=== PATIENT | female | born 1980 ===

== ENCOUNTER 2020-03-27 | Outpatient (REF) | payer OTHER, SELFPAY ==
[2020-04-02 21:37] LABS: HPV mRNA E6/E7 Not Detected (Not Detected)
== END 2020-03-28 15:08 | disposition home or self-care (01) ==
LOC: HO.LAB
PROVIDERS: Visit Provider Advanced Practice Midwife
DX: Z01.419 Encounter for gynecological examination (general) (routine) without abnormal findings (principal); Z11.3 Encounter for screening for infections with a predominantly sexual mode of transmission
CPT/HCPCS: 87624; 87625; 88142

== ENCOUNTER → 2020-03-27 09:06 | Outpatient (BNVA) | payer OTHER, SELFPAY | PROVIDERS: PCP Internal Medicine; Referring Provider Internal Medicine; Visit Provider Advanced Practice Midwife | DX: Z76.89 Persons encountering health services in other specified circumstances (principal) ==

== ENCOUNTER 2020-04-01 11:01 | Outpatient (REF) | payer OTHER, SELFPAY ==
--- NOTE | 2020-04-01 11:09 | MM_ITS ---
EXAMINATION: MM DIAGNOSTIC DIGITAL BREAST TOMOSYNTHESIS, BILATERAL US DIAGNOSTIC ULTRASOUND BREAST, BILATERAL CLINICAL INFORMATION: Bilateral masses palpable at routine annual clinical exam. Family history breast cancer in mother, age early 50s. Due for yearly. The lifetime risk of breast cancer based on the Tyrer-Cuzick Model is 15%. COMPARISON: Mammography: 12/12/2018, 12/04/2018, 11/21/2017; targeted right breast ultrasound 12/12/2018. TECHNIQUE: Digital breast tomosynthesis is performed in both the craniocaudal and mediolateral oblique views along with computer-aided detection (CAD). Synthesized 2D images are generated from the tomosynthesis. Ultrasound left breast is targeted to the areas of clinical concern upper and outer quadrants. Ultrasound right breast is targeted to the areas of clinical concern imaging concern 3:00 through 8:00 position. Grayscale imaging and color Doppler are performed on each side without and with harmonics. FINDINGS: The breasts are extremely dense, which lowers the sensitivity of mammography (ACR BI-RADS breast composition Category d). There is new mass posterior 3:00 left breast with smooth and partly obscured margins measuring around 1.5 cm. There is a new mass right breast posterior 3:00 position with smooth and partly obscured margins, or approximately 1.9 cm. There is an old cyst again seen upper right breast on MLO view, slightly increased in size, currently measuring 1.5 cm. Neither breast shows architectural abnormality. There are no abnormal calcifications. The axilla and skin contours are unremarkable. Ultrasound left breast demonstrates simple cyst posterior 3:00 position corresponding to the mass on mammography and measuring 1.3 x 1.6 x 2.0 cm. There is a satellite cyst near this area with fine internal avascular septation and overall size 1.0 x 1.1 cm. There is no solid mass or architectural abnormality. Ultrasound right breast demonstrates multiple simple cysts. The mass posterior to o'clock-3:00 position measures 2.3 x 0.9 x 3.1 cm. The next largest cyst is upper outer breast 10:00 position measuring approximately 1.5 x 1.8 cm. There is an adjacent satellite cyst with fine incomplete thin internal septation and overall size 1.2 x 1.5 cm. There is no solid mass or architectural abnormality. Results are discussed with the patient at time of visit. IMPRESSION: Bilateral fibrocystic changes. No significant change from prior studies. No solid mass or architectural abnormality. ASSESSMENT: BI-RADS 2: Benign RECOMMENDATION: Routine annual mammography screening. This patient's information was entered into a reminder system with a target due date for their next mammogram.
== END 2020-04-01 11:02 | disposition home or self-care (01) ==
LOC: HO.MAMMO 11:01
PROVIDERS: PCP Internal Medicine; Visit Provider Advanced Practice Midwife
DX: N63.11 Unspecified lump in the right breast, upper outer quadrant (principal); N63.12 Unspecified lump in the right breast, upper inner quadrant; N63.21 Unspecified lump in the left breast, upper outer quadrant; Z80.3 Family history of malignant neoplasm of breast
CPT/HCPCS: 76642; 77062; 77066

== ENCOUNTER 2021-04-06 10:18 | Outpatient (REF) | payer OTHER, SELFPAY ==
--- NOTE | ~2021-04-06 | MM_ITS ---
EXAMINATION: MM SCREENING DIGITAL BREAST TOMOSYNTHESIS, BILATERAL CLINICAL INFORMATION: Screening. Asymptomatic. Family history breast cancer, mother. The lifetime risk of breast cancer based on the Tyrer-Cuzick Model is 16%. COMPARISON: Mammography: 04/01/2020, 12/12/2018, 12/04/2018, 11/21/2017; bilateral targeted ultrasound 04/01/2020, 12/12/2018. TECHNIQUE: Digital breast tomosynthesis is performed in both the craniocaudal and mediolateral oblique views along with computer-aided detection (CAD). Synthesized 2D images are generated from the tomosynthesis. FINDINGS: The breasts are extremely dense, which lowers the sensitivity of mammography (ACR BI-RADS breast composition Category d). There is fibrocystic parenchymal pattern similar to prior studies. A dominant cyst again seen posterior medial right breast. There is no significant mass or architectural abnormality. No interval abnormal calcifications. The axilla and skin contours are unremarkable. No significant changes from prior studies. MM/MM tomosynthesis screening BI IMPRESSION: No mammographic evidence of malignancy. ASSESSMENT: BI-RADS 2: Benign RECOMMENDATION: Routine annual mammography screening. This patient's information was entered into a reminder system with a target due date for their next mammogram.
== END 2021-04-06 10:19 | disposition home or self-care (01) ==
LOC: HO.MAMMO 10:18
PROVIDERS: Visit Provider Internal Medicine
DX: Z12.31 Encounter for screening mammogram for malignant neoplasm of breast (principal)
CPT/HCPCS: 77063; 77067

== ENCOUNTER 2021-05-15 09:18 | Outpatient (REF) | payer OTHER, SELFPAY | END 2021-05-15 09:19 | disposition home or self-care (01) | LOC: HO.LAB 09:18 | PROVIDERS: Visit Provider Internal Medicine | DX: Z20.822 Contact with and (suspected) exposure to COVID-19 (principal) | CPT/HCPCS: C9803; U0003; U0005 ==

== ENCOUNTER 2021-06-02 11:02 | Outpatient (REF) | payer OTHER, SELFPAY | END 2021-06-02 11:03 | disposition home or self-care (01) | LOC: HO.LAB 11:02 | PROVIDERS: Visit Provider Internal Medicine | DX: Z13.89 Encounter for screening for other disorder (principal) | CPT/HCPCS: C9803; U0003; U0005 ==

== ENCOUNTER 2021-06-04 09:18 | Outpatient (REF) | payer OTHER, SELFPAY ==
[2021-06-04 11:11] LABS: COVID-19 Test Negative (Negative); IDNOW Serial# 16C4AD1C
== END 2021-06-04 09:19 | disposition home or self-care (01) ==
LOC: HO.LAB 09:18
PROVIDERS: Visit Provider Internal Medicine
DX: Z20.822 Contact with and (suspected) exposure to COVID-19 (principal)
CPT/HCPCS: 36415; 87635; C9803

== ENCOUNTER 2021-06-23 09:42 | Outpatient (REF) | payer OTHER, SELFPAY ==
--- NOTE | ~2021-06-23 | XR_ITS ---
EXAMINATION: XR CHEST CLINICAL INFORMATION: Chest pain. COMPARISON: None TECHNIQUE: 2 views of the chest were obtained. FINDINGS: No significant abnormality is noted involving the heart, lungs, mediastinum, bony thorax or soft tissues. XR/XR chest 2V IMPRESSION: No acute cardiopulmonary process.
[2021-06-23 10:09] LABS: MANUAL DIFF FLAG NO
--- NOTE | 2021-06-23 10:10 | ECG_ITS ---
Test Reason : cp Blood Pressure : / mmHG Vent. Rate : 077 BPM Atrial Rate : 077 BPM P-R Int : 154 ms QRS Dur : 074 ms QT Int : 384 ms P-R-T Axes : 055 072 051 degrees QTc Int : 434 ms Normal sinus rhythm Normal ECG No previous ECGs available Referred By: Sheree Gill Electronically Signed By:SHERLY RAND
[2021-06-23 10:29] LABS: Basophils Percent Auto 0.3 % (0-2); Eosinophils Absolute Auto 0.1 X10*3/uL (0.0-0.4); Eosinophils Percent Auto 1.7 % (0-4); Hematocrit 33.5 % (37.0-47.0); Lymphocytes Absolute Auto 0.4 X10*3/uL (1.2-4.9); Lymphocytes Percent Auto 10.2 % (20-40); Mean Corpuscular HGB Conc 32.8 g/dl (31.0-35.0); Mean Corpuscular Hemoglobin 27.3 pg (27.0-33.0); Mean Corpuscular Volume 83.1 fL (80.0-98.0); Mean Platelet Volume 10.3 fL (9.4-12.3); Monocytes Absolute Auto 0.2 X10*3/uL (0.1-1.2); Monocytes Percent Auto 5.8 % (2-11); Platelet Count 163 X10*3/uL (160-400); Red Blood Count 4.03 X10*6/uL (4.20-5.50); Red Cell Distribution Width 12.5 % (11.0-16.0); White Blood Count 3.6 X10*3/uL (4.8-10.8)
[2021-06-23 10:50] LABS: Alanine Aminotransferase 13 U/L (0-31); Albumin Level 4.4 g/dL (3.5-5.0); Alkaline Phosphatase 66 U/L (39-117); Anion Gap 10 (12-20); Aspartate Amino Transferase 16 U/L (5-31); Bilirubin Direct 0.2 mg/dL (0.0-0.5); Bilirubin Total 0.5 mg/dL (0.0-1.0); Blood Urea Nitrogen 9 mg/dL (9-16); Calcium 9.1 mg/dL (8.4-10.2); Carbon Dioxide 23 mmol/L (22-29); Chloride 109 mmol/L (96-108); Cholesterol 196 mg/dL; Estimated Glomerular Filt Rate > 60; Glucose Fasting 98 mg/dL (60-99); HDL Cholesterol 48 mg/dL; LDL Cholesterol Calculated 126 mg/dl; Sodium 138 mmol/L (135-145); Total Protein 7.7 g/dL (6.5-8.0); Triglycerides 112 mg/dL
[2021-06-23 10:52] LABS: Troponin-I High Sensitivity < 3.5 ng/L (<3.5-17.0)
[2021-06-23 11:14] LABS: TSH reflex Free T4 0.62 uIU/mL (0.32-4.0); Vitamin D 25-OH Total 19.3 ng/mL (>30)
[2021-06-23 11:43] LABS: Folate 10.8 ng/mL (> or = 4.0); Vitamin B12 224 pg/mL (200-900)
[2021-06-28 12:56] LABS: Vitamin D 25-OH, D2 <4 ng/mL; Vitamin D 25-OH, D3 20 ng/mL; Vitamin D 25-OH, Total 20 ng/mL (30-100)
== END 2021-06-23 09:43 | disposition home or self-care (01) ==
LOC: HO.LAB 09:42
PROVIDERS: PCP Internal Medicine; Visit Provider Nurse Practitioner Family
DX: R07.9 Chest pain, unspecified (principal); E55.9 Vitamin D deficiency, unspecified; D64.9 Anemia, unspecified; E78.5 Hyperlipidemia, unspecified; Z84.1 Family history of disorders of kidney and ureter
CPT/HCPCS: 36415; 71046; 80053; 80061; 80076; 82248; 82306; 82607; 82746; 84443; 84484; 85025; 93005

== ENCOUNTER → 2021-07-20 08:28 | Outpatient (REF) | payer OTHER, SELFPAY ==
--- NOTE | 2021-07-20 08:31 | CA_ITS ---
Acquisition Time: 2021-07-20 09:33:00 Total Exercise Time: 00:07:14 Test Indications: CHEST PAIN Medications: NONE Protocol: ANNIKA Max HR: 155 BPM 87% of Pred: 177 BPM Max BP: 128/070 mmHG Max Work Load: 8.8 METS Exercise stress test with exercise 7 min 14 sec of Aninka protocol, without anginal symptoms, without arrythmia, with normotensive response to exercise, without EKG changes meeting criteria for ischemia. Test reviewed with Dr Bishop. Referred By: Sheree Gill Overread By: JOSEF GILBERT
== END ==
LOC: HO.CARD 08:28
PROVIDERS: Visit Provider Nurse Practitioner Family
DX: R07.9 Chest pain, unspecified (principal)
CPT/HCPCS: 93017

== ENCOUNTER 2021-10-21 08:14 | Outpatient (REF) | payer OTHER, SELFPAY ==
[2021-10-21 09:01] LABS: COVID-19 Test Negative (Negative)
== END 2021-10-21 08:15 | disposition home or self-care (01) ==
LOC: HO.LAB 08:14
PROVIDERS: Visit Provider Internal Medicine
DX: Z20.822 Contact with and (suspected) exposure to COVID-19 (principal)
CPT/HCPCS: 87635; C9803

== ENCOUNTER 2022-04-12 10:10 | Outpatient (REF) | payer OTHER, SELFPAY ==
--- NOTE | ~2022-04-12 | MM_ITS ---
EXAMINATION: MM SCREENING DIGITAL BREAST TOMOSYNTHESIS, BILATERAL CLINICAL INFORMATION: Screening. Asymptomatic. Family history breast cancer, mother. The lifetime risk of breast cancer based on the Tyrer-Cuzick Model is 16%. COMPARISON: Mammography: 04/06/2021, 04/01/2020, 12/12/2018, bilateral breast ultrasound 04/01/2020 TECHNIQUE: Digital breast tomosynthesis is performed in both the craniocaudal and mediolateral oblique views along with computer-aided detection (CAD). Synthesized 2D images are generated from the tomosynthesis. FINDINGS: The breasts are extremely dense, which lowers the sensitivity of mammography (ACR BI-RADS breast composition Category d). There is no interval mass or architectural abnormality or developing density. Parenchymal pattern is similar to prior studies. No abnormal calcifications. The axilla and skin contours are unremarkable. No significant changes. MM/MM tomosynthesis screening BI IMPRESSION: No mammographic evidence of malignancy. ASSESSMENT: BI-RADS 1: Negative RECOMMENDATION: Routine annual mammography screening. This patient's information was entered into a reminder system with a target due date for their next mammogram.
== END 2022-04-12 10:11 | disposition home or self-care (01) ==
LOC: HO.MAMMO 10:10
PROVIDERS: PCP Internal Medicine; Visit Provider Internal Medicine
DX: Z12.31 Encounter for screening mammogram for malignant neoplasm of breast (principal)
CPT/HCPCS: 77063; 77067

== ENCOUNTER 2022-08-16 12:08 | Outpatient (REF) | payer OTHER, SELFPAY ==
[2022-08-16 12:26] LABS: MANUAL DIFF FLAG NO
[2022-08-16 12:45] LABS: Basophils Percent Auto 0.3 % (0-2); Eosinophils Absolute Auto 0.1 X10*3/uL (0.0-0.4); Hematocrit 32.1 % (37.0-47.0); Hemoglobin 10.4 g/dl (12.0-16.0); Imm Gran Abs Auto 0.01 X10*3/uL (0.00-0.03); Imm Gran Pct Auto 0.3 % (0.0-0.4); Lymphocytes Absolute Auto 0.9 X10*3/uL (1.2-4.9); Lymphocytes Percent Auto 26.6 % (20-40); Mean Corpuscular HGB Conc 32.4 g/dl (31.0-35.0); Mean Corpuscular Hemoglobin 26.5 pg (27.0-33.0); Mean Corpuscular Volume 81.9 fL (80.0-98.0); Mean Platelet Volume 10.8 fL (9.4-12.3); Monocytes Absolute Auto 0.2 X10*3/uL (0.1-1.2); Monocytes Percent Auto 6.9 % (2-11); Neutrophils Absolute Auto 2.1 x10*3/uL (2.0-8.3); Neutrophils Percent Auto 62.9 % (45-73); Platelet Count 169 X10*3/uL (160-400); Red Blood Count 3.92 X10*6/uL (4.20-5.50); Red Cell Distribution Width 13.1 % (11.0-16.0); White Blood Count 3.4 X10*3/uL (4.8-10.8)
[2022-08-16 13:29] LABS: Alanine Aminotransferase 11 U/L (0-31); Albumin Level 4.5 g/dL (3.5-5.0); Alkaline Phosphatase 59 U/L (39-117); Anion Gap 12 (12-20); Aspartate Amino Transferase 21 U/L (5-31); Bilirubin Total 0.8 mg/dL (0.0-1.0); Blood Urea Nitrogen 16 mg/dL (9-16); Calcium 8.7 mg/dL (8.4-10.2); Carbon Dioxide 23 mmol/L (22-29); Chloride 109 mmol/L (96-108); Cholesterol 213 mg/dL; Estimated Glomerular Filt Rate > 60; Glucose Fasting 90 mg/dL (60-99); HDL Cholesterol 53 mg/dL; LDL Cholesterol Calculated 145 mg/dl; Potassium 4.1 mmol/L (3.3-5.1); Sodium 140 mmol/L (135-145); Total Protein 7.3 g/dL (6.5-8.0); Triglycerides 79 mg/dL
[2022-08-16 13:58] LABS: Folate 11.7 ng/mL (> or = 4.0); Vitamin B12 239 pg/mL (200-900); Vitamin D 25-OH Total 11.4 ng/mL (>30)
== END 2022-08-16 12:09 | disposition home or self-care (01) ==
LOC: HO.LAB 12:08
PROVIDERS: PCP Internal Medicine; Visit Provider Internal Medicine
DX: Z00.00 Encounter for general adult medical examination without abnormal findings (principal); D64.9 Anemia, unspecified; D70.9 Neutropenia, unspecified; E55.9 Vitamin D deficiency, unspecified
CPT/HCPCS: 36415; 80053; 80061; 82306; 82607; 82746; 85025

== ENCOUNTER → 2022-09-03 14:13 | Outpatient (BNV) | payer OTHER, SELFPAY | PROVIDERS: PCP Internal Medicine; Visit Provider Internal Medicine | DX: D50.9 Iron deficiency anemia, unspecified (principal); D72.819 Decreased white blood cell count, unspecified | CPT/HCPCS: 99204; 99213; 99214; G2211 ==

== ENCOUNTER 2023-04-15 10:14 | Outpatient (REF) | payer OTHER, SELFPAY ==
--- NOTE | ~2023-04-15 | MM_ITS ---
EXAMINATION: MM SCREENING DIGITAL BREAST TOMOSYNTHESIS, BILATERAL CLINICAL INFORMATION: Screening. Asymptomatic. COMPARISON: Mammography: This study is compared with prior exams dating back to 2019. TECHNIQUE: Digital breast tomosynthesis is performed in both the craniocaudal and mediolateral oblique views along with computer-aided detection (CAD). Synthesized 2D images are generated from the tomosynthesis. FINDINGS: The breasts are extremely dense, which lowers the sensitivity of mammography (ACR BI-RADS breast composition Category d). There are no significant masses, abnormal calcifications, or other abnormalities. MM/MM tomosynthesis screening BI IMPRESSION: No mammographic evidence of malignancy. ASSESSMENT: BI-RADS BI-RADS 1 - Negative RECOMMENDATION: Routine annual mammography screening. 1 year F/U This examination should not preclude the clinical evaluation of a suspicious palpable abnormality. This patient's information was entered into a reminder system with a target due date for their next mammogram.
== END 2023-04-15 10:15 | disposition home or self-care (01) ==
LOC: HO.MAMMO 10:14
PROVIDERS: PCP Internal Medicine; Visit Provider Internal Medicine
DX: Z12.31 Encounter for screening mammogram for malignant neoplasm of breast (principal)
CPT/HCPCS: 77063; 77067

== ENCOUNTER → 2023-04-15 10:15 | Outpatient (BNV) | payer OTHER, SELFPAY | PROVIDERS: PCP Internal Medicine; Visit Provider Radiology Diagnostic Radiology | DX: Z12.31 Encounter for screening mammogram for malignant neoplasm of breast (principal) | CPT/HCPCS: 77063; 77067 ==

== ENCOUNTER 2023-04-25 09:06 | Outpatient (AMB) | payer OTHER, SELFPAY ==
--- NOTE | 2023-04-25 09:07 | MHC.PC.OV ---
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 Accompanied by: Spouse Allergies No Known Allergies Allergy (Verified 04/25/23 09:26) Medication List - Last Reconciled 04/25/23 by Patsy Cooper MD cholecalciferol (vitamin D3) 50 mcg PO DAILY 90 days cyanocobalamin (vitamin B-12) (Vitamin B-12) 1,000 mcg PO DAILY ferrous sulfate 325 mg PO DAILY loratadine (Allergy Relief (loratadine)) 10 mg PO DAILY Tobacco use date assessed: 08/23/22 Dental Screening Dental Screen Date: 04/25/23 Did you have a dental visit in the last 12 months?: Yes Did you have a dental problem in the last 6 months where you did not have access to dental care?: No Was dental information given to patient?: Patient has dentist HPI HPI Comments History of Present Illness Details This is a 42-year-old female that comes accompanied by for her physical exam. Last mammogram was last week and results are still pending. Last Pap smear was 2019 and was normal with negative HPV. No chest pain or shortness of breath. [facility] Medical History Raynaud disease Skin lesion of scalp HSV-1 infection Seasonal allergies Surgical History Hx of tubal ligation History of 2 sections Family History Father Prostate cancer Kidney failure Mother Cervical cancer Breast cancer Maternal Grandmother Breast cancer Social History Housing: House Alcohol intake: current Alcohol intake frequency: holidays/special occasions only Patient Tobacco Use Status: Never used Tobacco e-Cigarette/Vaping Use: Never Used Second Hand Smoke Exposure: No service: No Current occupational status: employed Current occupational exposures/hazards: No Gender identity: Female Cognitive needs: No Hearing needs: No Vision needs: Yes Female Reproductive History Menstrual Age of Menarche: 11 Questionnaire Thrive Questionnaire Date Thrive assessed: 08/23/22 LUIS-7 AMB Questionnaire LUIS-7 Date LUIS - 7 assessed: 08/23/22 Source: Developed by Drs. Axel Larose, Skye Alonso, Anthony Nugent and colleagues, with an educational cesario from [email or web address]. Review of Systems Const All systems reviewed & are unremarkable except as noted in HPI and below Eyes Reports no additional complaints, Denies change in vision and Denies other visual disturbances Card Denies chest pain at rest, Denies chest pain with activity, Denies edema, Denies irregular heart rhythm, Denies claudication, Denies dyspnea, Denies dyspnea on exertion, Denies orthopnea, Denies paroxysmal nocturnal dyspnea and Denies slow heart rate Resp Denies cough, Denies dyspnea and Denies dyspnea on exertion GI Denies abdominal pain, Denies change in bowel habits, Denies excessive flatus, Denies nausea and Denies vomiting Denies urinary incontinence, Denies urinary hesitancy and Denies urinary urgency Musc Denies abnormal gait, Denies atrophy, Denies deformity and Denies limited range of motion Skin/Breast Denies bleeding lesions, Denies changing lesions and Denies rash Neuro Denies abnormal gait and Denies lack of coordination Physical exam (Primary Care) Vital Signs: Last Vital Signs Pulse 79 04/25/23 09:15 BP 110/76 04/25/23 09:15 Pulse Ox 99 04/25/23 09:15 Oxygen Delivery Method Room Air 04/25/23 09:15 BMI result Body Mass Index 22.1 Tobacco/Smoking Status: Tobacco use Status Tobacco use date assessed 08/23/22 04/25/23 09:08 Patient Tobacco Use Status Never used Tobacco 04/25/23 09:08 e-Cigarette/Vaping Use Never Used 04/25/23 09:08 Thrive Assessment: Date of Thrive Assessment Date Thrive assessed 08/23/22 04/25/23 09:08 Const Orientation/consciousness: patient oriented x3 HENMT Head: Yes normal to inspection, Yes normocephalic and Yes atraumatic Ears: external ears normal Eyes General: appearance normal, both eyes and all related structures Eyelids: Yes eyelids normal Conjunctivae: conjunctivae normal Neck Neck: Yes normal visual inspection and Yes supple Resp Effort & Inspection: normal respiratory effort Auscultation: clear to auscultation bilaterally Cardio Jugular venous distension: no JVD Rate: regular rate Rhythm: regular rhythm Heart sounds: S1 normal heart sound present and S2 normal heart sound present GI Inspection: Yes normal to inspection Palpation (GI): Soft to palpation and nontender Auscultation: normal bowel sounds Skin General skin exam: no rashes or lesions noted Neuro General: patient oriented x3 and no focal motor deficits Extrem General: Yes full ROM Psych Appearance: grossly normal Office Procedures Flu Questionnaire Does the patient have a severe egg allergy?: No Immunizations flu vacc [id number] 6mos up(PF) 60 mcg(15 mcgx4)/0.5 mL IM syringe Performing Provider: Patsy Cooper MD [facility] Documented (not given) by: JAMIN Marcial on 04/25/23 09:17 Reason Not Given: Patient Refused Assessment and Plan Assessment & Plan (1) Physical exam: Code(s): Z00.00 - Encounter for general adult medical examination without abnormal findings Plan: Repeat in a year. Orders: Orders Influenza [id number] Immunization Today Z23 - Encounter for immunization Vitamin D 25-OH Total Today E55.9 - Vitamin D deficiency, unspecified Lipid Panel Today Z00.00 - Encounter for general adult medical examination without abnormal findings Comprehensive [place]. Panel Fast Today Z00.00 - Encounter for general adult medical examination without abnormal findings Medications: New loratadine (Allergy Relief (loratadine)) 10 mg PO DAILY 90 days 90 tabs 0RF Changed From ferrous sulfate 325 mg PO BID 60 tabs 4RF To ferrous sulfate 325 mg PO DAILY Refilled cholecalciferol (vitamin D3) 50 mcg PO DAILY 90 days 90 caps 1RF Coding Level of Care Code Est Pt Prev Care 40-64y(56633) Diagnoses Physical exam Z00.00 Time Spent (min) 31
[2023-04-25 09:15] VITALS: BP 110/76; PULSE 79; O2SAT 99; BMI 22.1
== END 2023-04-25 09:45 | disposition home or self-care (01) ==
PROVIDERS: Visit Provider Internal Medicine
DX: Z00.00 Encounter for general adult medical examination without abnormal findings (principal); Z84.1 Family history of disorders of kidney and ureter
CPT/HCPCS: 99396

== ENCOUNTER 2023-05-09 08:31 | Outpatient (REF) | payer OTHER, SELFPAY | END 2023-05-09 08:32 | disposition home or self-care (01) | LOC: HO.LAB 08:31 | PROVIDERS: PCP Internal Medicine; Visit Provider Internal Medicine | DX: Z13.89 Encounter for screening for other disorder (principal) ==

== ENCOUNTER 2023-10-27 09:52 | Outpatient (AMB) | payer OTHER, SELFPAY ==
--- NOTE | 2023-10-27 09:53 | MHC.OFFVIS ---
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 Doing well with concerns: Regular monthly menses, HMB x2, w/spotting up 2 wks. Over the last 2 years. History of tubal ligation Currently is sexually active. She denies vaginal itching and irritation. She denies any pelvic pain, no postcoital bleeding, or urinary symptoms. Admits to not eating a healthy diet, and stays active with exercise at home. 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 Denies family history of ovarian or colon cancer. FH breast cancer-mom, dx. age 54. Last pap smear 2019, negative. Mammogram: 2022. [facility] Medical History Raynaud disease Skin lesion of scalp HSV-1 infection Seasonal allergies Surgical History Hx of tubal ligation History of 2 sections Family History Father Prostate cancer Kidney failure Mother Cervical cancer Breast cancer Maternal Grandmother Breast cancer Social History Housing: House Alcohol intake: current Alcohol intake frequency: holidays/special occasions only Patient Tobacco Use Status: Never used Tobacco e-Cigarette/Vaping Use: Never Used Second Hand Smoke Exposure: No service: No Current occupational status: employed Current occupational exposures/hazards: No Gender identity: Female Cognitive needs: No Hearing needs: No Vision needs: Yes Female Reproductive History Menstrual Age of Menarche: 11 Duration of menses: 6-7 days Date of last menstrual period: 10/17/23 control method: permanent sterilization Total pregnancies: 2 Full term: 2 Number of Living Children: 2 Date of last pap smear: 04/01/20 (negative) History of abnormal pap smear: No Date of Mammogram: 04/15/23 Review of Systems Const All systems reviewed & are unremarkable except as noted in HPI and below Reports as per HPI Eyes Reports no additional complaints ENT Reports no additional complaints Card Reports no additional complaints Resp Reports no additional complaints GI Reports as per HPI and Reports no additional complaints Reports as per HPI Musc Reports no additional complaints Skin/Breast Reports as per HPI Neuro Reports no additional complaints Psych Reports no additional complaints Endo Reports no additional complaints Johann/Lymph Reports no additional complaints Aller/Immun Reports no additional complaints Physical Exam Vital Signs: Last Vital Signs BP 92/64 10/27/23 09:55 BMI result Body Mass Index 22.3 Const General: cooperative, healthy appearing, no acute distress, well developed and alert Orientation/consciousness: patient oriented x3 HEENT Head: Yes normal to inspection Eyes General: appearance normal, both eyes and all related structures Neck Neck: Yes normal visual inspection Thyroid: Thyroid normal Chest Chest palpation & inspection: normal inspection of the chest and other (no puckering, dimpling, peau de orange, retraction, discharge, masses) Breast/axilla inspection: normal inspection of the breasts Breast/axilla palpation: normal palpation of the breasts Resp Effort & Inspection: normal respiratory effort GI Inspection: Yes normal to inspection Palpation (GI): Soft to palpation Rectal Exam - Female: deferred General: Yes bladder normal to palpation External Female Exam: normal external appearance and normal appearance of the urethra Speculum Exam - Vagina: normal appearance of the vagina, normal palpation, normal vaginal discharge and vaginal bleeding Speculum Exam - Cervix: normal appearance of the cervix and normal palpation Bimanual exam- vagina & uterus: normal bimanual exam, normal palpation, uterine size normal, bladder normal to palpation, normal palpation and non-tender Bimanual Exam- Adnexa, other: no masses OB/external & speculum: vaginal bleeding Skin General skin exam: no rashes or lesions noted Rashes: no rashes Neuro General: patient oriented x3 Cognition (Neuro): normal cognition Extrem General: Yes normal to inspection Psych Attitude: cooperative Thought process: Normal thought process present Results AMB Test Urine AMB Test Urine Negative Last Edit by JAMIN Shahid on 10/27/23 10:41 Assessment & Plan Assessment & Plan (1) Well woman exam with routine gynecological exam: Code(s): Z01.419 - Encounter for gynecological examination (general) (routine) without abnormal findings Category: Medical (2) Abnormal uterine bleeding: Code(s): N93.9 - Abnormal uterine and vaginal bleeding, unspecified Plan Discussed: Current recommendations for pap smears per ASCCP guidelines. Breast awareness and periodic breast exams. Maintain a healthy lifestyle including a well balanced diet and routine exercise. AUB workup to include CBC, TSH, pelvic ultrasound, endometrial biopsy. Counseled regarding an preprocedure planning with eating and hydrating day of and taking either 2 Tylenol or 3 Advil with food 1 hour before the procedure. Information regarding Mirena IUD provided today literature book given. Mammogram yearly. Patient verbalizes understanding and agrees to the plan of care. She was given opportunity to ask questions and all questions were answered to the best of my ability. 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 This note is constructed using voice recognition software. While every effort has been made to ensure accuracy, oxygen equipment preparer errors may have been included. Orders: Orders Complete Blood Count no Diff Today N93.9 - Abnormal uterine and vaginal bleeding, unspecified Thyroid Stimulating Hormone Today N92.1 - Excessive and frequent menstruation with irregular cycle, N93.9 - Abnormal uterine and vaginal bleeding, unspecified Bacterial Vaginosis Panel Today N93.9 - Abnormal uterine and vaginal bleeding, unspecified Pap Smear Today N93.9 - Abnormal uterine and vaginal bleeding, unspecified US pelvic and transvaginal Today N93.9 - Abnormal uterine and vaginal bleeding, unspecified CT NG by PCR Today N93.9 - Abnormal uterine and vaginal bleeding, unspecified AMB HCG Urine Test Today Z32.02 - Encounter for test, result negative Coding Level of Care Code New Pt Prev Care 40-64y(55434) Diagnoses Well woman exam with routine gynecological exam Z01.419 Abnormal uterine bleeding N93.9
[2023-10-27 09:55] VITALS: BP 92/64; BMI 22.3
== END 2023-10-27 10:37 | disposition home or self-care (01) ==
LOC: HO.HWS 09:52
PROVIDERS: PCP Internal Medicine; Visit Provider Advanced Practice Midwife
DX: Z01.419 Encounter for gynecological examination (general) (routine) without abnormal findings (principal); N93.9 Abnormal uterine and vaginal bleeding, unspecified; Z32.02 Encounter for pregnancy test, result negative
CPT/HCPCS: 99386

== ENCOUNTER 2023-10-27 09:52 | Outpatient (REF) | payer OTHER, SELFPAY ==
[2023-10-27 16:42] LABS: Bacterial Vaginosis PCR NEGATIVE (Negative); Candida Group PCR NOT DETECTED (Not Detect); Candida glab krusei PCR NOT DETECTED (Not Detect); Trichomonas vaginalis PCR NOT DETECTED (Not Detect)
[2023-10-27 17:29] LABS: CT PCR NOT DETECTED (Not Detect.); NG PCR NOT DETECTED (Not Detect.)
[2023-11-04 03:14] LABS: HPV mRNA E6/E7 rflx Not Detected (Not Detected)
== END 2023-10-27 09:53 | disposition home or self-care (01) ==
LOC: HO.LNP 09:52
PROVIDERS: PCP Internal Medicine; Visit Provider Advanced Practice Midwife
DX: Z01.419 Encounter for gynecological examination (general) (routine) without abnormal findings (principal); N92.1 Excessive and frequent menstruation with irregular cycle; Z32.02 Encounter for pregnancy test, result negative
CPT/HCPCS: 0352U; 0353U; 81025; 87624; 88142; 99386

== ENCOUNTER 2023-11-14 11:27 | Outpatient (REF) | payer OTHER, SELFPAY ==
--- NOTE | ~2023-11-14 | US_ITS ---
EXAMINATION: US PELVIS CLINICAL INFORMATION: Abnormal uterine and vaginal bleeding, unspecified LMP: 3 weeks ago,? 10/31/2023 COMPARISON: None available. TECHNIQUE: Ultrasound of the pelvis is performed using both transabdominal and transvaginal transducers along with Doppler. Transvaginal imaging is performed due to inadequate visualization transabdominally. FINDINGS: Uterus: The uterus is anteverted and measures 9.9 x 5.4 x 6.1 cm. A 1.5 x 0.9 x 0.8 cm intramural fibroid is seen in the posterior upper body. A 0.6 x 0.5 x 0.7 cm intramural fibroid is seen on the anterior right side of the body. The endometrial thickness 1.1 cm Adnexa: Both ovaries are visualized. There is normal color flow to the adnexa. There is no ovarian torsion. There is no pelvic ascites or fluid collection. Right ovary measures 4.9 x 2.5 x 2.3 cm. Volume 14.8 mL. 1.8 x 1.1 x 1 1.3 cm focus in the right ovary likely represents a collapsing corpus luteum. 0.7 x 0.7 x 0.7 cm exophytic simple follicle is seen. Left ovary measures 2.7 x 1.9 x 1.6 cm. Volume 4.3 mL. US/US pelvic and transvaginal IMPRESSION: 1. 2 small intramural fibroids. 2. 1.3 cm focus in the right ovary likely represents a collapsing corpus luteum. No follow-up imaging is recommended. 3. Normal left ovary.
== END 2023-11-14 11:28 | disposition home or self-care (01) ==
LOC: HO.US 11:27
PROVIDERS: PCP Internal Medicine; Visit Provider Advanced Practice Midwife
DX: N93.9 Abnormal uterine and vaginal bleeding, unspecified (principal)
CPT/HCPCS: 76830; 76856

== ENCOUNTER 2023-12-06 15:37 | Outpatient (AMB) | payer OTHER, SELFPAY ==
--- NOTE | 2023-12-06 15:39 | MHC.OFFVIS ---
Vital Signs 12/06/23 15:40 Height 5 ft 1 in Weight 117 lb BMI 22.1 BP 114/66 Blood Pressure Location Lt brachial Position Sitting Intake Visit Reasons: Ultra sound follow up/EMB Allergies No Known Allergies Allergy (Verified 12/06/23 15:42) HPI Comments Details: Patient is here today for a follow up ultrasound and an EMB, accompanied by her Naman. She has a history of AUB. History of tubal ligation. [facility] Medical History Fibroids Raynaud disease Skin lesion of scalp HSV-1 infection Seasonal allergies Surgical History Hx of tubal ligation History of 2 sections Family History Father Prostate cancer Kidney failure Mother Cervical cancer Breast cancer Maternal Grandmother Breast cancer Social History Housing: House Alcohol intake: current Alcohol intake frequency: holidays/special occasions only Patient Tobacco Use Status: Never used Tobacco e-Cigarette/Vaping Use: Never Used Second Hand Smoke Exposure: No service: No Current occupational status: employed Current occupational exposures/hazards: No Gender identity: Female Cognitive needs: No Hearing needs: No Vision needs: Yes Female Reproductive History Menstrual Age of Menarche: 11 Review of Systems Const All systems reviewed & are unremarkable except as noted in HPI and below Physical Exam Const General: cooperative, healthy appearing and no acute distress Orientation/consciousness: patient oriented x3 GI Inspection: Yes normal to inspection Palpation (GI): Soft to palpation and Other GI palpation findings present (Nontender) Rectal Exam - Female: visual inspection normal General: Yes bladder normal to palpation External Female Exam: normal appearance of the urethra Speculum Exam - Vagina: normal appearance of the vagina, normal palpation and normal vaginal discharge Speculum Exam - Cervix: normal appearance of the cervix and normal palpation Bimanual exam- vagina & uterus: normal bimanual exam, normal palpation, uterine size normal, bladder normal to palpation, normal palpation, uterine shape normal and non-tender Bimanual Exam- Adnexa, other: normal adnexae Neuro General: patient oriented x3 Office Procedures Endometrial Biopsy Details: The patient is here today for an endometrial biopsy due to AUB to rule out any pathology including atypical, hyperplasia or cancer cells of the uterus. She was counseled regarding anticipatory guidance for the procedure including the risks for pain, infection, bleeding, perforation, potential injury to the tissues may include the cervix, uterus, tubes, bladder and bowels. These injuries may include further treatment and evaluation including surgery, blood transfusions, antibiotics, hospitalizations and anesthesia. Permanent injury and scarring can occur. She was consented for the procedure, and the consent forms were signed. She is agreeable to have the procedure today. All questions were answered. Endometrial Biopsy Procedure: The patient was placed in the dorsal lithotomy position and a sterile speculum inserted. Using aseptic technique for the procedure. The cervix was cleansed with Betadine x 3 swabs. A single toothed tenaculum was placed on the cervix for stabilization and the uterus was sounded to 9 cm with a 4mm pipelle for 3 passes. Minimal bleeding was observed. The tissue sample was placed in formalin in a patient labeled container by staff assisting and sent to the pathology department for processing and interpretation. The patient tolerate the procedure well and was in good condition when leaving the department. Endometrial Biopsy Post Procedure Care: Nothing in the vagina including: tampons, douching or intimacy until all the bleeding has subsided. There may be some post procedure bleeding for several days, this bleeding is usually light and may turn to a light brown or pink color. Mild cramps may occurs. Nothing in the vaginal including: tampons, douching, or intimacy until all the bleeding has subsided. You may take an over the counter mild analgesic such as Tylenol or Advil (if no allergies) per the manufactures recommendation on dosing, frequency, and follow the directions completely. Call the office if any: fever (over 100.4), flu like symptoms, abdominal pain (worse than cramping), foul smelling, infected appearing vaginal discharge, or heavy bleeding. If indicated: Use condoms to prevent and STI's, and only after the bleeding has stopped completely. Return to the office in 2 weeks for results and plan of care. This note is constructed using voice recognition software. While every effort has been made to ensure accuracy, nuclear waste process operator errors may have been included. [id number] Biopsy Results AMB Test Urine AMB Test Urine Negative Last Edit by Odalys Jose CMA on 12/06/23 15:47 Results Reviewed Results Reviewed: [address] [address] Ultrasound Report Signed Patient: Kristen Broussard MR#: [id number] : 1980 Acct:[id number] Age/Sex: 43 / F ADM Date: 11/14/23 Loc: HO.US Attending Dr: Beatrice Smith CNM Ordering Physician: Beatrice Smith CNM Date of Service: 11/14/23 Procedure(s): US pelvic and transvaginal Accession Number(s): [id number] cc: Beatrice Smith CNM; Patsy Bolton MD~ EXAMINATION: US PELVIS CLINICAL INFORMATION: Abnormal uterine and vaginal bleeding, unspecified LMP: 3 weeks ago,? 10/31/2023 COMPARISON: None available. TECHNIQUE: Ultrasound of the pelvis is performed using both transabdominal and transvaginal transducers along with Doppler. Transvaginal imaging is performed due to inadequate visualization transabdominally. FINDINGS: Uterus: The uterus is anteverted and measures 9.9 x 5.4 x 6.1 cm. A 1.5 x 0.9 x 0.8 cm intramural fibroid is seen in the posterior upper body. A 0.6 x 0.5 x 0.7 cm intramural fibroid is seen on the anterior right side of the body. The endometrial thickness 1.1 cm Adnexa: Both ovaries are visualized. There is normal color flow to the adnexa. There is no ovarian torsion. There is no pelvic ascites or fluid collection. Right ovary measures 4.9 x 2.5 x 2.3 cm. Volume 14.8 mL. 1.8 x 1.1 x 1 1.3 cm focus in the right ovary likely represents a collapsing corpus luteum. 0.7 x 0.7 x 0.7 cm exophytic simple follicle is seen. Left ovary measures 2.7 x 1.9 x 1.6 cm. Volume 4.3 mL. US/US pelvic and transvaginal IMPRESSION: 1. 2 small intramural fibroids. 2. 1.3 cm focus in the right ovary likely represents a collapsing corpus luteum. No follow-up imaging is recommended. 3. Normal left ovary. Dictated By: Dianna Abdalla MD Signed By: <Electronically signed by Dianna Abdalla MD in OV> 11/28/23 1201 DD/ 1222 TD/TT: Milliner Helper: Assessment & Plan Assessment & Plan (1) Abnormal uterine bleeding: Code(s): N93.9 - Abnormal uterine and vaginal bleeding, unspecified (2) Encounter to discuss test results: Code(s): Z71.2 - Person consulting for explanation of examination or test findings (3) Fibroids: Comment: Ultrasound follow-up 04/2024... Code(s): D21.9 - Benign neoplasm of connective and other soft tissue, unspecified Category: Medical Plan Discussed: Ultrasound findings with to fibroids. Counseled re: Leiomyoma: common pelvic neoplasm. Differential diagnosis-may include leiomyosarcoma which is a rare uterine sarcoma 3-7/100,000, difficult to distinguish from fibroids on ultrasound from uterine sarcoma's. Unlikely any single test will have a highly positive predictive value. Hysterectomy is not recommended for sole purpose of excluding malignant neoplasm. Report any PMB/AUB. Pelvic pressure, bloating, or pain. Consult for surgical exploration verses expectant management offered. Patient prefers expectant management. Expectant management follow up in 6 months, then yearly for stability. Referral to MD if indicated for level of care. Scheduled appointment in 6 months for ultrasound and follow up. Counseled regarding Mirena IUD use for treatment of AUB, follow up for EMB results and Mirena IUD same day. Anticipatory guidance for procedure, and pre medication for procedure to include eating and drinking and taking 2-3 Advil 1 hour before the procedure time. This note is constructed using voice recognition software. While every effort has been made to ensure accuracy, nuclear waste process operator errors may have been included. Orders: Orders AMB HCG Urine Test Today Z32.02 - Encounter for test, result negative Surgical Today N93.9 - Abnormal uterine and vaginal bleeding, unspecified US pelvic and transvaginal 04/23/24 D21.9 - Benign neoplasm of connective and other soft tissue, unspecified Coding Level of Care Code Procedure Only Diagnoses Abnormal uterine bleeding N93.9 Encounter to discuss test results Z71.2 Fibroids D21.9 CPT Codes Endometrial Biopsy - CPT: 67076-[id number] Biopsy ([id number])
[2023-12-06 15:40] VITALS: BP 114/66; BMI 22.1
== END 2023-12-06 16:17 | disposition home or self-care (01) ==
LOC: HO.HWS 15:37
PROVIDERS: PCP Internal Medicine; Visit Provider Advanced Practice Midwife
DX: N93.9 Abnormal uterine and vaginal bleeding, unspecified (principal); Z32.02 Encounter for pregnancy test, result negative
CPT/HCPCS: 58100

== ENCOUNTER 2023-12-06 15:37 | Outpatient (REF) | payer OTHER, SELFPAY | END 2023-12-06 15:38 | disposition home or self-care (01) | LOC: HO.LNP 15:37 | PROVIDERS: PCP Internal Medicine; Visit Provider Advanced Practice Midwife | DX: N93.9 Abnormal uterine and vaginal bleeding, unspecified (principal); D21.9 Benign neoplasm of connective and other soft tissue, unspecified; Z71.2 Person consulting for explanation of examination or test findings | CPT/HCPCS: 58100; 81025; 88305 ==

== ENCOUNTER 2024-01-13 10:09 | Outpatient (AMB) | payer OTHER, SELFPAY ==
--- NOTE | 2024-01-13 10:13 | A.OFFVIS_ITS ---
Vital Signs 01/13/24 10:14 Height 5 ft 1 in Weight 117 lb BMI 22.1 BP 106/68 Intake Visit Reasons: Mirena/EMB follow up Hand Ironer: Hand Ironer Present (Snehal) Allergies No Known Allergies Allergy (Verified 01/13/24 10:14) HPI Comments Details: Patient is here today for a follow up EMB results and to have a Mirena IUD inserted for AUB, accompanied by her Naman. Has a menses today in a negative test. [facility] Medical History Fibroids Raynaud disease Skin lesion of scalp HSV-1 infection Seasonal allergies Surgical History Hx of tubal ligation History of 2 sections Family History Father Prostate cancer Kidney failure Mother Cervical cancer Breast cancer Maternal Grandmother Breast cancer Social History Housing: House Alcohol intake: current Alcohol intake frequency: holidays/special occasions only Patient Tobacco Use Status: Never used Tobacco e-Cigarette/Vaping Use: Never Used Second Hand Smoke Exposure: No service: No Current occupational status: employed Current occupational exposures/hazards: No Gender identity: Female Cognitive needs: No Hearing needs: No Vision needs: Yes Female Reproductive History Menstrual Age of Menarche: 11 control method: progestin IUCD (Mirena inserted 01/13/2024 for AUB) Review of Systems Const All systems reviewed & are unremarkable except as noted in HPI and below Physical Exam Vital Signs: BMI result Body Mass Index 22.1 Const General: cooperative, healthy appearing and no acute distress Orientation/consciousness: patient oriented x3 GI Inspection: Yes normal to inspection Palpation (GI): Soft to palpation and Other GI palpation findings present (Nontender) Rectal Exam - Female: visual inspection normal General: Yes bladder normal to palpation External Female Exam: normal appearance of the urethra Speculum Exam - Vagina: normal appearance of the vagina, normal palpation, normal vaginal discharge and vaginal bleeding Speculum Exam - Cervix: normal appearance of the cervix and normal palpation Bimanual exam- vagina & uterus: normal bimanual exam, normal palpation, uterine size normal, bladder normal to palpation, normal palpation, uterine shape normal and non-tender Bimanual Exam- Adnexa, other: normal adnexae OB/external & speculum: vaginal bleeding Neuro General: patient oriented x3 Office Procedures Contraception Insert/Removal Details Details: The patient is here today for a Mirena IUD insertion. She was counseled on the side effects including: menstrual cycle changes, pain, infection, bleeding, or expulsion. Risks of injury to the vagina, cervix, uterus, tubes, ovaries, bowel, bladder, and any adjacent tissue, resulting in nerve damage, scarring, and pain. Risks complications for the procedure that may require other test including ultrasounds, Xray, CT or MRI scan, surgery, an esthesia, blood transfusion. A urine test was completed and was negative. She was consented for the IUD insertion and has signed the consent form. All questions were answered. IUD Insertion: The patient was placed in the dorsal lithotomy position and a sterile speculum was inserted. The procedure was completed under aseptic technique. The cervix was cleansed with a Betadine solution x 3 swabs. A single toothed tenaculum was applied to the cervix for stabilization, and the uterus was sounded to 8cm. The device was inserted and released with a gentle motion. Bleeding from the tenaculum sites and the procedure were minimal. The strings were trimmed to 3cm. All of the equipment was removed and the bimanual was normal, no tip was palpable at the cervical os. The patient tolerated the procedure well and left the office in good condition. Post IUD Insertion Care: There may be some post insertion bleeding for several days that is usually light and can turn to a light brown or pink in color. Mild cramping may occur. Nothing in the vagina including: tampons, douching or intimacy for several days. You may take an over the counter mild analgesia like Tylenol or Advil (if no allergies), per the manufacturers recommendations on dosing and frequency. Follow the directions completely. Call the office if any: fever (over 100.4), flu like symptoms, abdominal pain, worsening cramping not resolved with over the counter medications, foul smelling vaginal odor, signs of infected appearing discharge, or heavy bleeding. Use a condom for a back up method if indicated for 7 days. Always use a condom for STI prevention; IUD's are not protective against STD's. Return to the office in 4-6 weeks for IUD recheck. This note is constructed using voice recognition software. While every effort has been made to ensure accuracy, photography teacher errors may have been included. Results Reviewed Results Reviewed: Surgical Pathology [id number] Name: Kristen Broussard Age/Sex: 43/F Attending: Beatrice Smith CNM : 1980 Submitted by: Beatrice Smith CNM Copies to: Patsy Bolton MD MR #: [id number] Status: DEP REF Collected: 12/06/23 Location: [facility] Received: 12/07/23 Diagnosis Endometrium, biopsy: Benign mid-late secretory endometrium; no atypia or carcinoma. Clinical History AUB Microscopic Description Microscopic sections reviewed. Material Received EMB Gross Description Received in formalin labeled ?EMB? are multiple irregular and tubular cast fragments of garg-pink and red- maroon tissue aggregating 1.5 x 1.5 x 0.45 cm, submitted in toto in a cassette labeled A. CEDS Copies To Beatrice mSith CNM [facility] [place] [place] [facility] [address] [place] [address] Patsy Bolton MD [facility] [place] [facility],[place] [address] [place] [address] NOTE: Unless otherwise stated, all tissue is formalin-fixed and paraffin- embedded. Some or all of the immunohistochemical tests reported herein may have been developed and their performance characteristics determined by [facility]. They have not been cleared or approved by the U.S. Food and Drug Administration (FDA). However, the FDA has determined that such clearance or approval is not necessary. This laboratory is certified under the Clinical Laboratory Improvement Amendments of 1988 (CLIA) as qualified to perform high complexity clinical laboratory testing. Electronically Signed By: Yue Villarreal 12/08/23 3342 Patient: Kristen Broussard Age/Sex: 43/F MR#: [id number] Page 1 of 1 Assessment & Plan Assessment & Plan (1) Encounter to discuss test results: Code(s): Z71.2 - Person consulting for explanation of examination or test findings (2) Abnormal uterine bleeding: Code(s): N93.9 - Abnormal uterine and vaginal bleeding, unspecified Plan See procedure note. Coding Level of Care Code Procedure Only Diagnoses Encounter to discuss test results Z71.2 Abnormal uterine bleeding N93.9
[2024-01-13 10:14] VITALS: BP 106/68; BMI 22.1
== END 2024-01-13 10:50 | disposition home or self-care (01) ==
LOC: HO.HWS 10:09
PROVIDERS: PCP Internal Medicine; Visit Provider Advanced Practice Midwife
DX: Z30.430 Encounter for insertion of intrauterine contraceptive device (principal); N93.9 Abnormal uterine and vaginal bleeding, unspecified; Z71.2 Person consulting for explanation of examination or test findings
CPT/HCPCS: 58300

== ENCOUNTER → 2024-01-13 10:09 | Outpatient (BNVA) | payer OTHER, SELFPAY | PROVIDERS: PCP Internal Medicine; Visit Provider Advanced Practice Midwife | DX: Z30.430 Encounter for insertion of intrauterine contraceptive device (principal); N93.9 Abnormal uterine and vaginal bleeding, unspecified | CPT/HCPCS: 58300; J7298 ==

== ENCOUNTER 2024-02-22 14:19 | Outpatient (AMB) | payer OTHER, SELFPAY ==
[2024-02-22 14:22] VITALS: BP 100/64; BMI 22.1
--- NOTE | 2024-02-22 14:22 | A.OFFVIS_ITS ---
Vital Signs 02/22/24 14:22 Height 5 ft 1 in Weight 117 lb BMI 22.1 BP 100/64 Intake Visit Reasons: iud check Chamfering Machine Operator: Chamfering Machine Operator Present (Snehal) Allergies No Known Allergies Allergy (Verified 02/22/24 14:22) HPI Comments Details: Patient is here today for an IUD checkup post insertion for AUB. She reports her bleeding cycles have greatly diminished and overall very happy with the device. She admits to some breast tenderness bilaterally since insertion. [facility] Medical History Fibroids Raynaud disease Skin lesion of scalp HSV-1 infection Seasonal allergies Surgical History Hx of tubal ligation History of 2 sections Family History Father Prostate cancer Kidney failure Mother Cervical cancer Breast cancer Maternal Grandmother Breast cancer Social History Housing: House Alcohol intake: current Alcohol intake frequency: holidays/special occasions only Patient Tobacco Use Status: Never used Tobacco e-Cigarette/Vaping Use: Never Used Second Hand Smoke Exposure: No service: No Current occupational status: employed Current occupational exposures/hazards: No Gender identity: Female Cognitive needs: No Hearing needs: No Vision needs: Yes Female Reproductive History Menstrual Age of Menarche: 11 control method: progestin IUCD (Mirena 01/13/24) Review of Systems Const All systems reviewed & are unremarkable except as noted in HPI and below Physical Exam Vital Signs: Last Vital Signs BP 100/64 02/22/24 14:22 BMI result Body Mass Index 22.1 Const General: cooperative, healthy appearing and no acute distress Orientation/consciousness: patient oriented x3 GI Inspection: Yes normal to inspection Palpation (GI): Soft to palpation and Other GI palpation findings present (Nontender) Rectal Exam - Female: visual inspection normal General: Yes bladder normal to palpation External Female Exam: normal appearance of the urethra Speculum Exam - Vagina: normal appearance of the vagina, normal palpation, normal vaginal discharge and vaginal bleeding (Small amount) Speculum Exam - Cervix: normal appearance of the cervix, normal palpation and Other cervical findings present (IUD strings present at the os, no tip palpable) Bimanual exam- vagina & uterus: normal bimanual exam, normal palpation, uterine size normal, bladder normal to palpation, normal palpation, uterine shape normal and non-tender Bimanual Exam- Adnexa, other: normal adnexae OB/external & speculum: vaginal bleeding (Small amount) Neuro General: patient oriented x3 Assessment & Plan Assessment & Plan (1) IUD surveillance: Code(s): Z30.431 - Encounter for routine checking of intrauterine contraceptive device Plan Discussed observing menstrual pattern, most likely will decrease with volume and frequency in time and may have random bleeding episodes. Report any concerns sooner than her terminal gauger annual that is scheduled in October of 2024. All of her questions and concerns were addressed to the best of my ability and shared decision making. She is agreeable to the plan of care. This note is constructed using voice recognition software. While every effort has been made to ensure accuracy, administration specialist errors may have been included. Coding Level of Care Code Est Pt Level 2 (39251) Diagnoses IUD surveillance Z30.431
== END 2024-02-22 14:55 | disposition home or self-care (01) ==
PROVIDERS: PCP Internal Medicine; Visit Provider Advanced Practice Midwife
DX: Z30.431 Encounter for routine checking of intrauterine contraceptive device (principal)
CPT/HCPCS: 99212

== ENCOUNTER → 2024-02-22 14:19 | Outpatient (BNVA) | payer OTHER, SELFPAY | PROVIDERS: PCP Internal Medicine; Visit Provider Advanced Practice Midwife | DX: N64.4 Mastodynia (principal); Z30.431 Encounter for routine checking of intrauterine contraceptive device | CPT/HCPCS: 99212 ==

== ENCOUNTER 2024-04-16 10:46 | Outpatient (REF) | payer OTHER, SELFPAY | END 2024-04-16 10:47 | disposition home or self-care (01) | LOC: HO.US 10:46 | PROVIDERS: PCP Internal Medicine; Visit Provider Advanced Practice Midwife | DX: D21.9 Benign neoplasm of connective and other soft tissue, unspecified (principal) | CPT/HCPCS: 76830; 76856 ==

== ENCOUNTER 2024-04-16 13:40 | Outpatient (REF) | payer OTHER, SELFPAY ==
--- NOTE | ~2024-04-16 | MM_ITS ---
EXAMINATION: MM SCREENING DIGITAL BREAST TOMOSYNTHESIS, BILATERAL CLINICAL INFORMATION: Screening. Asymptomatic. COMPARISON: Mammography: Comparison is made with available priors TECHNIQUE: Digital breast mammography with tomosynthesis is performed in both the craniocaudal and mediolateral oblique views along with computer-aided detection (CAD). FINDINGS: The breasts are heterogeneously dense, which may obscure small masses (ACR BI-RADS breast composition Category c). There are no significant masses, abnormal calcifications, or other abnormalities. MM/MM tomosynthesis screening BI IMPRESSION: No mammographic evidence of malignancy. ASSESSMENT: BI-RADS BI-RADS 1 - Negative RECOMMENDATION: Routine annual mammography screening. 1 year F/U This examination should not preclude the clinical evaluation of a suspicious palpable abnormality. This patient's information was entered into a reminder system with a target due date for their next mammogram. Electronically signed by: Jelly Marcano DO 04/25/2024 12:19 PM PENNY
== END 2024-04-16 13:41 | disposition home or self-care (01) ==
LOC: HO.MAMMO 13:40
PROVIDERS: PCP Internal Medicine; Visit Provider Internal Medicine
DX: Z12.31 Encounter for screening mammogram for malignant neoplasm of breast (principal)
CPT/HCPCS: 77063; 77067

== ENCOUNTER → 2024-04-16 13:45 | Outpatient (BNV) | payer OTHER, SELFPAY | PROVIDERS: PCP Internal Medicine; Visit Provider Internal Medicine | DX: Z12.31 Encounter for screening mammogram for malignant neoplasm of breast (principal) | CPT/HCPCS: 77063; 77067 ==

== ENCOUNTER 2024-04-30 09:06 | Outpatient (AMB) | payer OTHER, SELFPAY ==
[2024-04-30 09:10] VITALS: BP 118/80; PULSE 69; O2SAT 97; BMI 21.9
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
== END 2024-04-30 10:12 | disposition home or self-care (01) ==
PROVIDERS: PCP Internal Medicine; Visit Provider Internal Medicine
DX: Z00.00 Encounter for general adult medical examination without abnormal findings (principal); F41.0 Panic disorder [episodic paroxysmal anxiety]; D70.9 Neutropenia, unspecified

== ENCOUNTER → 2024-04-30 09:06 | Outpatient (BNVA) | payer OTHER, SELFPAY | PROVIDERS: PCP Internal Medicine; Visit Provider Internal Medicine | DX: Z00.00 Encounter for general adult medical examination without abnormal findings (principal); F41.0 Panic disorder [episodic paroxysmal anxiety]; D70.9 Neutropenia, unspecified | CPT/HCPCS: 96127; 99396 ==

== ENCOUNTER 2024-06-19 09:28 | Outpatient (AMB) | payer OTHER, SELFPAY ==
--- NOTE | 2024-06-19 09:33 | A.OFFVIS_ITS ---
Intake Visit Reasons: US follow up Chair Inspector And Leveler: Chair Inspector And Leveler Present (Jil) Accompanied by: Self / Same As Patient Allergies No Known Allergies Allergy (Verified 06/19/24 09:34) Is last menstrual period known: Yes HPI Comments Details: Patient is here today for a follow up pelvic ultrasound, history of AUB, with a recent IUD inserted for medical treatment. History of small uterine fibroid and ovarian cyst. She denies any pelvic pain. [facility] Medical History (Updated 06/19/24 @ 10:03 by Beatrice Smith CNM) Complex ovarian cyst Neutropenia Fibroids Raynaud disease Skin lesion of scalp HSV-1 infection Seasonal allergies Surgical History Hx of tubal ligation History of 2 sections Family History Father Prostate cancer Kidney failure Mother Cervical cancer Breast cancer Maternal Grandmother Breast cancer Social History Housing: House Alcohol intake: current Alcohol intake frequency: holidays/special occasions only Alcohol type: beer, wine and hard liquor Patient Tobacco Use Status: Never used Tobacco e-Cigarette/Vaping Use: Never Used Second Hand Smoke Exposure: No service: No Current occupational status: employed Current occupational exposures/hazards: No Gender identity: Female Cognitive needs: No Hearing needs: No Vision needs: Yes Female Reproductive History Menstrual Age of Menarche: 11 Review of Systems Const All systems reviewed & are unremarkable except as noted in HPI and below Endo Reports no additional complaints Physical Exam Const General: cooperative, healthy appearing and no acute distress Psych Appearance: well kempt Attitude: cooperative Thought process: Normal thought process present Results Reviewed Results Reviewed: [address] [address] Ultrasound Report Signed Patient: Kristen Broussard MR#: [id number] : 1980 Acct:[id number] Age/Sex: 43 / F ADM Date: 04/16/24 Loc: HO.US Attending Dr: Beatrice Smith CNM Ordering Physician: Beatrice Smith CNM Date of Service: 04/16/24 Procedure(s): US pelvic and transvaginal Accession Number(s): [id number] cc: Beatrice Smith CNM; Patsy Bolton MD~ EXAMINATION:US PELVIS TRANSABDOMINAL AND TRANSVAGINAL CLINICAL INFORMATION: D21.9 - Benign neoplasm of connective and other soft tissue, unspecified COMPARISON: Prior ultrasound November 14, 2023 LMP: March 13, 2024 FINDINGS: UTERUS: The uterus is anteverted. Size: 10.2 x 5.4 x 6.2 cm. Uterine mass: Intramural uterine masses likely fibroid measuring up to 1.3 cm and 0.7 cm. Cervix: There are nabothian cysts otherwise Grossly unremarkable. Endometrium: No ultrasound evidence of endometrial lesion. endometrial thickness measures 0.3 cm, IUD in place. ADNEXA: Normal Right ovary: Normal in size. Cystic structure in the right ovary likely a dominant follicle measuring up to 3.5 cm. Left ovary: Normal in size. Corpus luteal cyst versus complex cyst left ovary measure up to 2.9 cm. Doppler exam: Normal Doppler flow identified in both ovaries. FREE FLUID: Trace amount of free fluid. OTHER FINDINGS: None US/US pelvic and transvaginal IMPRESSION: 1. Intramural uterine masses likely fibroids. 2. IUD in place properly positioned. 3. Cystic structure right ovary 3.5 cm likely a dominant physiologic follicle. 4. Complex cystic mass versus Corpus luteal cyst within the left ovary 2.9 cm. Recommend correlation with follow-up ultrasound in 3 months. Electronically signed by: Marina Wynn MD 06/09/2024 02:25 PM [facility] Dictated By: Marina Wynn MD Signed By: <Electronically signed by Marina Wynn MD in OV> 06/09/24 1425 DD/ 1115 TD/TT: 04/16/24 1150 Sandstone Inspector Repairer: JUSTYN Assessment & Plan Assessment & Plan (1) Complex ovarian cyst: Code(s): N83.299 - Other ovarian cyst, unspecified side Category: Medical (2) Fibroids: Code(s): D21.9 - Benign neoplasm of connective and other soft tissue, unspecified Category: Medical (3) Encounter to discuss test results: Code(s): Z71.2 - Person consulting for explanation of examination or test findings Plan Discussed: Ultrasound findings, complex ovarian cyst, fibroid, see comments of scan. Counseled regarding findings of: Complex ovarian cyst, which is often benign, and most resolve on their own overtime. Some develop into premalignant or malignant tumors. Limitations of testing for diagnostic purposes. Further monitoring and evaluation is recommended with US, possible CT, or MRI study. If persists, or is indicated (Ca-125, Carbohydrate Antigen 19-9, & Carcinoembryonic Antigen) labs will be ordered and referral to [facility]/ONC or general gynecology for MD care if indicated for possible surgical consult. Fibroid information. Counseled re: Leiomyoma: common pelvic neoplasm. Differential diagnosis-may include but not limited to- leiomyosarcoma which is a rare uterine sarcoma 3-7/100,000, difficult to distinguish from fibroids on ultrasound from uterine sarcoma's. Unlikely any single test will have a highly positive predictive value. Hysterectomy is not recommended for sole purpose of excluding malignant neoplasm. Consult for surgical exploration, medical treatment, other treatments, verses expectant management, pros and cons, risks and benefits. Expectant management follow up in 6 months, then yearly for stability. Report any AUB, pelvic pressure, bloating, or pain. Referral to MD if indicated for level of care if indicated. Follow up in person for test results. All of her questions and concerns were addressed to the best of my ability and shared decision making. She is agreeable to the plan of care. This note is constructed using voice recognition software. While every effort has been made to ensure accuracy, precision optics technician errors may have been included. Orders: Orders US pelvic and transvaginal Today N83.299 - Other ovarian cyst, unspecified side Coding Level of Care Code Est Pt Level 3 (33540) Diagnoses Complex ovarian cyst N83.299 Fibroids D21.9 Encounter to discuss test results Z71.2
== END 2024-06-19 10:02 | disposition home or self-care (01) ==
LOC: HO.HWS 09:28
PROVIDERS: PCP Internal Medicine; Visit Provider Advanced Practice Midwife
DX: N83.292 Other ovarian cyst, left side (principal); D25.9 Leiomyoma of uterus, unspecified; Z71.2 Person consulting for explanation of examination or test findings
CPT/HCPCS: 99213

== ENCOUNTER → 2024-06-19 09:28 | Outpatient (BNVA) | payer OTHER, SELFPAY | PROVIDERS: PCP Internal Medicine; Visit Provider Advanced Practice Midwife | DX: N83.299 Other ovarian cyst, unspecified side (principal); D21.9 Benign neoplasm of connective and other soft tissue, unspecified; Z71.2 Person consulting for explanation of examination or test findings | CPT/HCPCS: 99212 ==

== ENCOUNTER 2024-07-02 13:52 | Outpatient (REF) | payer OTHER, SELFPAY ==
--- NOTE | ~2024-07-02 | US_ITS ---
EXAMINATION: US PELVIS TRANSABDOMINAL AND TRANSVAGINAL HISTORY: N83.299 - Other ovarian cyst, unspecified side COMPARISON: Comparison is made with the prior examination dated 04/16/2024. TECHNIQUE: Transabdominal and endovaginal real-time 2D young-scale ultrasound was performed. Color Doppler was also performed. FINDINGS: Uterus: The uterus is normal in size, measuring 9.9 x 4.5 x 6.0 cm. Myometrium has a normal echotexture. No fibroids are identified. Endometrium: The endometrial stripe measures 3 mm in thickness. An IUD is noted in expected position. Right ovary: The right ovary measures 4.2 x 2.2 x 2.6 cm. The right ovary is normal in size and echotexture. There is a 2.2 x 1.7 x 2.6 cm cyst versus follicle. A 7 mm paraovarian cyst is also noted. Left ovary: The left ovary measures 3.8 x 2.7 x 2.3 cm. The left ovary is normal in size and echotexture. There is a cyst versus follicle measuring 2.1 x 1.9 x 1.8 cm. The previously seen complex appearing cyst has resolved. Color Doppler analysis of the bilateral ovarian arteries and veins are normal. Pelvic fluid: none. US/US pelvic and transvaginal IMPRESSION: IUD in the endometrial cavity of the uterus. Bilateral ovarian cysts versus follicles. The previously seen complex appearing left ovarian cyst has resolved. Electronically signed by: Axel Alexander MD 07/02/2024 02:48 PM [facility] [place]
== END 2024-07-02 13:53 | disposition home or self-care (01) ==
LOC: HO.US 13:52
PROVIDERS: PCP Internal Medicine; Visit Provider Advanced Practice Midwife
DX: N83.299 Other ovarian cyst, unspecified side (principal)
CPT/HCPCS: 76830; 76856

== ENCOUNTER → 2024-07-02 13:55 | Outpatient (BNV) | payer OTHER, SELFPAY | PROVIDERS: PCP Internal Medicine; Visit Provider Radiology Diagnostic Radiology | DX: N83.291 Other ovarian cyst, right side (principal); N83.292 Other ovarian cyst, left side | CPT/HCPCS: 76830; 76856 ==

== ENCOUNTER 2024-07-30 15:36 | Outpatient (AMB) | payer OTHER, SELFPAY ==
--- NOTE | 2024-07-30 15:46 | A.OFFPSYCH_ITS ---
Intake Intake Visit Reasons: consultation Allergies No Known Allergies Allergy (Verified 06/19/24 09:34) Medication List - Last Reconciled 07/31/24 by Yue Rodgers APRN cholecalciferol (vitamin D3) 50 mcg PO DAILY 90 days cyanocobalamin (vitamin B-12) (Vitamin B-12) 1,000 mcg PO DAILY ferrous sulfate 325 mg PO DAILY fluoxetine 5 mg (1/2 x 10 mg) PO DAILY levonorgestrel (Mirena) 21 mcg intrauterine DAILY loratadine (Allergy Relief (loratadine)) 10 mg PO DAILY 90 days lorazepam (Ativan) 0.5 mg PO DAILY PRN HPI- Psychiatric Chief Complaint: consultation HPI Narrative: Referred by PCP for eval due to increased social anxiety over the past year, as well as panic attacks when in confined spaces or sleeping in a tent camping. Pt reports symptoms have been present for 1.5 years but have increased in intensity and frequency ; she reports she has never been anxious as a child or young adult;She has had a number of stressors lately with family and the lossof a dog. she has never taken psychotropics in past; she reports she is very sensitive to medications; she is wanting to start with a therapist but there is a wait list. she has good family support and socializes regularly; she works and enjoys her work. she denies any substance abuse; she drinks 1 cup of coffee a day. Past Psychiatric History: one panic attack 15 yrs ago whn her first dog - no tx at that time she used self taught breathing skills Subjective Subjective Subjective Medication Compliance: Yes Side effects from medications: No Review of Systems Medical Review of Systems: unchanged Mental Status Exam Mental Status Exam Patient Appearance: Well Grooomed and Appropriate Patient Orientation: Person, Place, Time and Situation Level of Consciousness: Awake and Appropriate Patient Behavior: Appropriate, Talkative, Cooperative and Anxious Mood Description: Anxious Affect Description: Anxious Patient Cognition Impaired: No Ability to Follow Directions: Good Speech Pattern: Clear, Appropriate and Coherent Memory Description: Intact Hallucinations: None Delusions: Not Present Thought Process: Intact Thought Content: positive for Intact Judgement: Good Assessment and Plan Assessment & Plan (1) Generalized anxiety disorder with panic attacks: Status: Acute Code(s): F41.1 - Generalized anxiety disorder; F41.0 - Panic disorder [episodic paroxysmal anxiety] Plan discussed with patient due to increase in frequency and intensity of papnic/anxiety I would recommend medication for 6-13 months while she does some therapy; she is willing but wants to start with very low dose as she has never taken psychiatric medications in past plan: prozac 5mg daily (1/2 of a 10 mg tablet ) ativan 0.5mg take 1/2 - 1 tab daily as need for severe anxiety/panic Medications: New fluoxetine 5 mg (1/2 x 10 mg) PO DAILY 45 tabs 0RF lorazepam (Ativan) 0.5 mg PO DAILY PRN 30 tabs 0RF anxiety Counseling and coordination of Care Pt. Self Management counseling: Maintenance-social rhythm, Mindfulness, Mod caffeine/ETOH intake, Nutrition education and improvement, Sleep hygiene, Behavior activation, General coping skills and Problem solving Medication management counseling: Effectiveness, Side effects, Dosing range, Duration, Drug interaction and Adherence Diagnosis and Prognosis Counseling: Accuracy of diagnosis, Prognosis over time, Impact of diagnosis on life functions, Impact of family relationship, Problematic behaviors secondary to diagnosis and Adequacy of current interventions Details: I spent 60 minutes reviewing the record, seeing the patient and documenting in the medical record. Counseling provided to the patient/caregiver as outlined below. Addressed patient/caregiver concerns regarding current medication regime including effective adherence. Addressed patient/caregiver concerns regarding diagnosis and prognosis including accuracy of diagnosis, prognosis over time, impact of diagnosis. Addressed patient/caregiver concerns regarding impact of recent stressors. [facility] Medical History (Updated 07/30/24 @ 17:13 by Yue Rodgers APRN) Complex ovarian cyst Neutropenia Fibroids Raynaud disease Skin lesion of scalp HSV-1 infection Seasonal allergies Surgical History Hx of tubal ligation History of 2 sections Family History Father Prostate cancer Kidney failure Mother Cervical cancer Breast cancer Maternal Grandmother Breast cancer Social History Housing: House Alcohol intake: current Alcohol intake frequency: holidays/special occasions only Alcohol type: beer, wine and hard liquor Patient Tobacco Use Status: Never used Tobacco e-Cigarette/Vaping Use: Never Used Second Hand Smoke Exposure: No service: No Current occupational status: employed Current occupational exposures/hazards: No Gender identity: Female Cognitive needs: No Hearing needs: No Vision needs: Yes Social History: and 2 adult children and 3 younger foster children; 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 large extended family Substance History: none Trauma History: none Coding Level of Care Code Psych Diag Eval w/Med (02169) Diagnoses Generalized anxiety disorder with panic attacks F41.1; F41.0
== END 2024-07-30 16:43 | disposition home or self-care (01) ==
LOC: HO.HOP 15:36
PROVIDERS: PCP Internal Medicine; Visit Provider Clinical Nurse Specialist Psychiatric/Mental Health
DX: F41.1 Generalized anxiety disorder (principal); F41.0 Panic disorder [episodic paroxysmal anxiety]
CPT/HCPCS: 90792

== ENCOUNTER → 2024-07-30 15:36 | Outpatient (BNVA) | payer OTHER, SELFPAY | PROVIDERS: PCP Internal Medicine; Visit Provider Clinical Nurse Specialist Psychiatric/Mental Health | DX: F41.1 Generalized anxiety disorder (principal); F41.0 Panic disorder [episodic paroxysmal anxiety]; Z71.89 Other specified counseling | CPT/HCPCS: 90792 ==

== ENCOUNTER 2024-08-28 15:04 | Outpatient (AMB) | payer OTHER, SELFPAY ==
--- NOTE | 2024-08-28 15:07 | A.OFFVIS_ITS ---
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 She denies any pelvic pain reports her IUD is working well without any concerns. She reports occasional bleeding episode. [facility] Medical History (Updated 08/28/24 @ 15:59 by Beatrice Smith CNM) Neutropenia Fibroids Raynaud disease Skin lesion of scalp HSV-1 infection Seasonal allergies Surgical History Hx of tubal ligation History of 2 sections Family History Father Prostate cancer Kidney failure Mother Cervical cancer Breast cancer Maternal Grandmother Breast cancer Social History Housing: House Alcohol intake: current Alcohol intake frequency: holidays/special occasions only Alcohol type: beer, wine and hard liquor Patient Tobacco Use Status: Never used Tobacco e-Cigarette/Vaping Use: Never Used Second Hand Smoke Exposure: No service: No Current occupational status: employed Current occupational exposures/hazards: No Gender identity: Female Cognitive needs: No Hearing needs: No Vision needs: Yes Female Reproductive History Menstrual Age of Menarche: 11 Review of Systems Const All systems reviewed & are unremarkable except as noted in HPI and below Endo Reports no additional complaints Physical Exam Vital Signs: Last Vital Signs BP 98/62 08/28/24 15:08 BMI result Body Mass Index 21.9 Const General: cooperative, healthy appearing and no acute distress Psych Appearance: well kempt Attitude: cooperative Thought process: Normal thought process present Results Reviewed Results Reviewed: [address] [address] Ultrasound Report Signed Patient: Kristen Broussard MR#: [id number] : 1980 Acct:[id number] Age/Sex: 44 / F ADM Date: 07/02/24 Loc: HO. Attending Dr: Beatrice Smith CNM Ordering Physician: Beatrice Smith CNM Date of Service: 07/02/24 Procedure(s): US pelvic and transvaginal Accession Number(s): [id number] cc: Beatrice Smith CNM; Patsy Bolton MD~ EXAMINATION: US PELVIS TRANSABDOMINAL AND TRANSVAGINAL HISTORY: N83.299 - Other ovarian cyst, unspecified side COMPARISON: Comparison is made with the prior examination dated 04/16/2024. TECHNIQUE: Transabdominal and endovaginal real-time 2D young-scale ultrasound was performed. Color Doppler was also performed. FINDINGS: Uterus: The uterus is normal in size, measuring 9.9 x 4.5 x 6.0 cm. Myometrium has a normal echotexture. No fibroids are identified. Endometrium: The endometrial stripe measures 3 mm in thickness. An IUD is noted in expected position. Right ovary: The right ovary measures 4.2 x 2.2 x 2.6 cm. The right ovary is normal in size and echotexture. There is a 2.2 x 1.7 x 2.6 cm cyst versus follicle. A 7 mm paraovarian cyst is also noted. Left ovary: The left ovary measures 3.8 x 2.7 x 2.3 cm. The left ovary is normal in size and echotexture. There is a cyst versus follicle measuring 2.1 x 1.9 x 1.8 cm. The previously seen complex appearing cyst has resolved. Color Doppler analysis of the bilateral ovarian arteries and veins are normal. Pelvic fluid: none. US/US pelvic and transvaginal IMPRESSION: IUD in the endometrial cavity of the uterus. Bilateral ovarian cysts versus follicles. The previously seen complex appearing left ovarian cyst has resolved. Electronically signed by: Axel Alexander MD 07/02/2024 02:48 PM [facility] Dictated By: Axel Alexander MD Signed By: <Electronically signed by Axel Alexander MD in OV> 07/02/24 1448 DD/ 1401 TD/TT: 07/02/24 1416 Environmental Project Manager: Assessment & Plan Assessment & Plan (1) Encounter to discuss test results: Code(s): Z71.2 - Person consulting for explanation of examination or test findings Plan Discussed ultrasound findings: Complex ovarian cyst has resolved, IUD is positioned in the properly. The patient expressed understanding and agreement with the plan of care. All of her questions and concerns were addressed to the best of my ability. Annual exam scheduled October of 2024. This note is constructed using voice recognition software. While every effort has been made to ensure accuracy, brand designer errors may have been included. Coding Level of Care Code Est Pt Level 3 (27545) Diagnoses Encounter to discuss test results Z71.2
[2024-08-28 15:08] VITALS: BP 98/62; BMI 21.9
== END 2024-08-28 15:49 | disposition home or self-care (01) ==
LOC: HO.HWS 15:04
PROVIDERS: PCP Internal Medicine; Visit Provider Advanced Practice Midwife
DX: Z71.2 Person consulting for explanation of examination or test findings (principal)
CPT/HCPCS: 99213

== ENCOUNTER → 2024-08-28 15:04 | Outpatient (BNVA) | payer OTHER, SELFPAY | PROVIDERS: PCP Internal Medicine; Visit Provider Advanced Practice Midwife | DX: Z71.2 Person consulting for explanation of examination or test findings (principal); Z97.5 Presence of (intrauterine) contraceptive device; Z87.42 Personal history of other diseases of the female genital tract | CPT/HCPCS: 99212 ==

== ENCOUNTER 2024-09-10 09:13 | Outpatient (AMB) | payer OTHER, SELFPAY ==
--- NOTE | 2024-09-10 12:23 | A.OFFPSYCH_ITS ---
Intake Intake Visit Reasons: follow up It Disaster Recovery Manager Required: No Allergies No Known Allergies Allergy (Verified 08/28/24 15:07) Medication List - Last Reconciled 09/10/24 by Yue Rodgers APRN cholecalciferol (vitamin D3) 50 mcg PO DAILY 90 days cyanocobalamin (vitamin B-12) (Vitamin B-12) 1,000 mcg PO DAILY ferrous sulfate 325 mg PO DAILY fluoxetine 5 mg (1/2 x 10 mg) PO DAILY levonorgestrel (Mirena) 21 mcg intrauterine DAILY loratadine (Allergy Relief (loratadine)) 10 mg PO DAILY 90 days lorazepam (Ativan) 0.5 mg PO DAILY PRN HPI- Psychiatric Chief Complaint: follow up HPI Narrative: pt reports improvement; she decided not to take medications and try lifestyle changes instead; she is exercising more. she and bought a larger camper so her claustrophobia wouldn't be triggered. she is still interested in therapy but has not heard from agency. Her PHQ9=3 and her GAD7 =4. She would like to come back in 3 months for one more visit after camping season starts to make sure that the panic attacks don't start again. Past Psychiatric History: one panic attack 15 yrs ago whn her first dog - no tx at that time she used self taught breathing skills Subjective Subjective Subjective Medication Compliance: No Side effects from medications: No Review of Systems Medical Review of Systems: unchanged Mental Status Exam Mental Status Exam Patient Appearance: Well Grooomed Patient Orientation: Person, Place, Time and Situation Level of Consciousness: Awake and Appropriate Patient Behavior: Appropriate, Talkative and Cooperative Mood Description: Appropriate, Sad and Nervous Affect Description: Sad and Nervous Patient Cognition Impaired: No Ability to Follow Directions: Good Speech Pattern: Clear and Appropriate Memory Description: Intact Hallucinations: None Delusions: Not Present Thought Process: Intact Thought Content: positive for Intact Judgement: Good Assessment and Plan Assessment & Plan (1) Generalized anxiety disorder with panic attacks: Status: Acute Code(s): F41.1 - Generalized anxiety disorder; F41.0 - Panic disorder [episodic paroxysmal anxiety] Plan continue with lifestyle changes encouraged her to try the prozac if symptoms worsen encouraged therapy Counseling and coordination of Care Pt. Self Management counseling: Maintenance-social rhythm, Sleep hygiene, Behavior activation, General coping skills and Problem solving Medication management counseling: Effectiveness, Side effects, Dosing range, Duration, Drug interaction and Adherence Diagnosis and Prognosis Counseling: Accuracy of diagnosis, Prognosis over time, Impact of diagnosis on life functions, Impact of family relationship, Problematic behaviors secondary to diagnosis and Adequacy of current interventions Details: I spent [] minutes reviewing the record, seeing the patient and documenting in the medical record. Counseling provided to the patient/caregiver as outlined below. Addressed patient/caregiver concerns regarding current medication regime including effective adherence. Addressed patient/caregiver concerns regarding diagnosis and prognosis including accuracy of diagnosis, prognosis over time, impact of diagnosis. Addressed patient/caregiver concerns regarding impact of recent stressors. [facility] Medical History (Updated 08/28/24 @ 15:59 by Beatrice Smith CNM) Neutropenia Fibroids Raynaud disease Skin lesion of scalp HSV-1 infection Seasonal allergies Surgical History Hx of tubal ligation History of 2 sections Family History Father Prostate cancer Kidney failure Mother Cervical cancer Breast cancer Maternal Grandmother Breast cancer Social History Housing: House Alcohol intake: current Alcohol intake frequency: holidays/special occasions only Alcohol type: beer, wine and hard liquor Patient Tobacco Use Status: Never used Tobacco e-Cigarette/Vaping Use: Never Used Second Hand Smoke Exposure: No service: No Current occupational status: employed Current occupational exposures/hazards: No Gender identity: Female Cognitive needs: No Hearing needs: No Vision needs: Yes Social History: and 2 adult children and 3 younger foster children; pt works [employer] as [employer]. large extended family Substance History: none Trauma History: none Coding Level of Care Code Est Pt Level 4 (64578) Diagnoses Generalized anxiety disorder with panic attacks F41.1; F41.0
== END 2024-09-10 09:38 | disposition home or self-care (01) ==
LOC: HO.HOP 09:13
PROVIDERS: PCP Internal Medicine; Visit Provider Clinical Nurse Specialist Psychiatric/Mental Health
DX: F41.1 Generalized anxiety disorder (principal); F41.0 Panic disorder [episodic paroxysmal anxiety]
CPT/HCPCS: 99214

== ENCOUNTER → 2024-09-10 09:13 | Outpatient (BNVA) | payer OTHER, SELFPAY | PROVIDERS: PCP Internal Medicine; Visit Provider Clinical Nurse Specialist Psychiatric/Mental Health | DX: F41.1 Generalized anxiety disorder (principal); F41.0 Panic disorder [episodic paroxysmal anxiety]; Z71.89 Other specified counseling | CPT/HCPCS: 99212 ==

== ENCOUNTER 2024-11-06 13:55 | Outpatient (AMB) | payer OTHER, SELFPAY ==
--- NOTE | 2024-11-06 13:57 | A.OFFVIS_ITS ---
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 Regular monthly menses. Hx. BLTL. Currently is sexually active. STI screening offered; she declines. She tries to eat healthy and stays active with exercise. Family history of breast cancer. Last pap smear 2023, negative. Mammogram: 2023. [facility] Medical History FH: breast cancer in first degree relative Neutropenia Fibroids Raynaud disease Skin lesion of scalp HSV-1 infection Seasonal allergies Surgical History Hx of tubal ligation History of 2 sections Family History Father Prostate cancer Kidney failure Mother Cervical cancer Breast cancer Maternal Grandmother Breast cancer Social History Housing: House Alcohol intake: current Alcohol intake frequency: holidays/special occasions only Alcohol type: beer, wine and hard liquor Patient Tobacco Use Status: Never used Tobacco e-Cigarette/Vaping Use: Never Used Second Hand Smoke Exposure: No service: No Current occupational status: employed Current occupational exposures/hazards: No Gender identity: Female Cognitive needs: No Hearing needs: No Vision needs: Yes Female Reproductive History Menstrual Age of Menarche: 11 control method: progestin IUCD (Mirena 01/13/24) and permanent sterilization Permanent Sterilization: BTL Total pregnancies: 2 Full term: 2 Number of Living Children: 2 Date of last pap smear: 10/27/23 (neg pap and hpv) Date of Mammogram: 04/16/24 (Birad 1) Review of Systems Const All systems reviewed & are unremarkable except as noted in HPI and below Reports as per HPI Eyes Reports no additional complaints ENT Reports no additional complaints Card Reports no additional complaints Resp Reports no additional complaints GI Reports as per HPI and Reports no additional complaints Reports as per HPI Musc Reports no additional complaints Skin/Breast Reports as per HPI Neuro Reports no additional complaints Psych Reports no additional complaints Endo Reports no additional complaints Johann/Lymph Reports no additional complaints Aller/Immun Reports no additional complaints Physical Exam Vital Signs: Last Vital Signs BP 92/60 11/06/24 13:59 BMI result Body Mass Index 22.3 Const General: cooperative, healthy appearing, no acute distress, well developed and alert Orientation/consciousness: patient oriented x3 HEENT Head: Yes normal to inspection Eyes General: appearance normal, both eyes and all related structures Neck Neck: Yes normal visual inspection Thyroid: Thyroid normal Chest Chest palpation & inspection: normal inspection of the chest and other (no puckering, dimpling, peau de orange, retraction, discharge, masses) Breast/axilla inspection: normal inspection of the breasts Breast/axilla palpation: normal palpation of the breasts Resp Effort & Inspection: normal respiratory effort GI Inspection: Yes normal to inspection and Yes scar Palpation (GI): Soft to palpation Rectal Exam - Female: deferred General: Yes bladder normal to palpation External Female Exam: normal external appearance, normal appearance of the urethra and other (Left labial inflamed lesion noninfected scabbed over) Speculum Exam - Vagina: normal appearance of the vagina, normal palpation and n ormal vaginal discharge Speculum Exam - Cervix: normal appearance of the cervix and normal palpation Bimanual exam- vagina & uterus: normal bimanual exam, normal palpation, uterine size normal, bladder normal to palpation, normal palpation and non-tender Bimanual Exam- Adnexa, other: no masses Skin General skin exam: no rashes or lesions noted Rashes: no rashes Neuro General: patient oriented x3 Cognition (Neuro): normal cognition Extrem General: Yes normal to inspection Psych Attitude: cooperative Thought process: Normal thought process present Assessment & Plan Assessment & Plan (1) Well woman exam with routine gynecological exam: Code(s): Z01.419 - Encounter for gynecological examination (general) (routine) without abnormal findings Category: Medical Plan Discussed: Current recommendations for pap smears per ASCCP guidelines. Breast awareness and periodic breast exams. Mammogram yearly. Maintain a healthy lifestyle including a well balanced diet and routine exercise. Reviewed skin care-no shaving or waxing, loose cotton clothing, antimicrobial soap, return to the office for any infections that do not subside with warm compresses. BRCA testing desired referral placed to breast surgery for consult. Patient verbalizes understanding and agrees to the plan of care. She was given opportunity to ask questions and all questions were answered to the best of my ability. RTO in one year for annual adjunct writing instructor examination. This note is constructed using voice recognition software. While every effort has been made to ensure accuracy, manager agricultural errors may have been included. Orders: Referrals Breast Surgery Referral Z80.3 - Family history of malignant neoplasm of breast Coding Level of Care Code Est Pt Prev Care 40-64y(46566) Diagnoses Well woman exam with routine gynecological exam Z01.419
[2024-11-06 13:59] VITALS: BP 92/60; BMI 22.3
== END 2024-11-06 15:19 | disposition home or self-care (01) ==
LOC: HO.HWS 13:56
PROVIDERS: PCP Internal Medicine; Visit Provider Advanced Practice Midwife
DX: Z01.419 Encounter for gynecological examination (general) (routine) without abnormal findings (principal)
CPT/HCPCS: 99396; 99459

== ENCOUNTER → 2024-11-06 13:55 | Outpatient (BNVA) | payer OTHER, SELFPAY | PROVIDERS: PCP Internal Medicine; Visit Provider Advanced Practice Midwife | DX: Z01.419 Encounter for gynecological examination (general) (routine) without abnormal findings (principal) | CPT/HCPCS: 99396; 99459 ==

== ENCOUNTER 2024-11-27 13:42 | Outpatient (AMB) | payer OTHER, SELFPAY ==
[2024-11-27 13:51] VITALS: BP 112/70; PULSE 88; TEMP 36.8; O2SAT 100; BMI 22.3
--- NOTE | 2024-11-27 13:51 | AM.OFFWIN_ITS ---
Intake Vital Signs 11/27/24 13:51 Height 5 ft 1 in Weight 118 lb 2 oz BMI 22.3 BP 112/70 Blood Pressure Location Rt brachial Position Sitting Pulse 88 Pulse Source Pulse Oximeter Temp 98.2 F Temp Source Oral Pulse Oximetry (%) 100 Oxygen Delivery Method Room Air Intake Visit Reasons: EP Pain on LT ear Intake Note: Patient presents with left ear pain times 4 days Patient Tobacco Use Status: Never used Tobacco Director Search Marketing Strategies Required: No Allergies No Known Allergies Allergy (Verified 11/27/24 13:54) HPI HPI Comments History of Present Illness Details History - The patient is a 44-year-old female pr esenting with severe itching and swelling in the left ear canal. - She has a history of itchy ears due to allergies and takes Claritin daily. - Recent increased rain has worsened her symptoms, leading to excessive scratching, swelling, and pain in the left ear canal. - The pain is severe, causing headaches and sleep disruption when lying on the affected side. - An oil treatment from an ENT was previ ously ineffective as the condition was not initially considered allergy-related. Physical Exam General: Cooperative, healthy appearing, comfortable, no acute distress and well developed Orientation: Patient oriented x3 Limitations: No limitations Head: Normal to inspection Ears: Left ear external with slight edema to EAC, TM's normal bilat, hearing grossly normal bilaterally Nose: Normal External nose present Face and sinus: Normal facial exam Mouth: normal, moist oral mucosa Eyes: Appearance normal, both eyes and all related structures Neck: Normal visual inspection and Yes full ROM Respiratory: Normal respiratory effort and able to speak in complete sentences. Skin: no rashes or lesions noted Neuro: Patient oriented x3 Extremities: moving all extremities normally PFSH Medical History FH: breast cancer in first degree relative Neutropenia Fibroids Raynaud disease Skin lesion of scalp HSV-1 infection Seasonal allergies Surgical History Hx of tubal ligation History of 2 sections Family History Father Prostate cancer Kidney failure Mother Cervical cancer Breast cancer Maternal Grandmother Breast cancer Social History (Reviewed 11/15/24 @ 10:05 by Dm [place] Housing: House Alcohol intake: current Alcohol intake frequency: holidays/special occasions only Alcohol type: beer, wine and hard liquor Patient Tobacco Use Status: Never used Tobacco e-Cigarette/Vaping Use: Never Used Second Hand Smoke Exposure: No service: No Current occupational status: employed Current occupational exposures/hazards: No Gender identity: Female Cognitive needs: No Hearing needs: No Vision needs: Yes Female Reproductive History Menstrual Age of Menarche: 11 Review of Systems Const All systems reviewed & are unremarkable except as noted in HPI and below Physical Exam Vital Signs: Last Vital Signs Temp 98.2 F 11/27/24 13:51 Pulse 88 11/27/24 13:51 BP 112/70 11/27/24 13:51 Pulse Ox 100 11/27/24 13:51 Oxygen Delivery Method Room Air 11/27/24 13:51 BMI result Body Mass Index 22.3 Assessment & Plan Assessment & Plan (1) Edema of external auditory canal: Code(s): R60.0 - Localized edema Plan: Patient was informed and verbally consented to the use of an ambient scribe for clinic note documentation during this visit - Prescribe prednisone ear drops, four drops three times a day, to reduce inflammation and itching. - Recommend Benadryl at night to alleviate itching and improve sleep. - Advise follow-up with primary care physician if symptoms persist, with potential referral to an ENT specialist. Medications: New hydrocortisone-acetic acid 1-2 % 4 drps otic (ear) left QID 10 mL 0RF Coding Level of Care Code Est Pt Level 3 (43969) Diagnoses Edema of external auditory canal R60.0
== END 2024-11-27 14:35 | disposition home or self-care (01) ==
PROVIDERS: PCP Internal Medicine; Visit Provider Physician Assistant
DX: R60.0 Localized edema (principal)

== ENCOUNTER → 2024-11-27 13:42 | Outpatient (BNVA) | payer OTHER, SELFPAY | PROVIDERS: PCP Internal Medicine; Visit Provider Physician Assistant | DX: R60.0 Localized edema (principal) | CPT/HCPCS: 99212 ==

== ENCOUNTER 2025-03-04 08:55 | Outpatient (AMB) | payer OTHER, SELFPAY ==
--- NOTE | 2025-03-04 09:00 | AM.OFFVISNUR ---
Intake Visit Reasons: TDAP per Dr. Jeffries Allergies No Known Allergies Allergy (Verified 11/27/24 13:54) Immunizations Boostrix Tdap 2.5 Lf unit-8 mcg-5 Lf/0.5 mL intramuscular syringe Performing Provider: Patsy Cooper MD [facility] Administered by: Zeenat Castillo RN on 03/04/25 09:00 Dose Route Admin Location Dispensed Lot Number Expiration Date [facility] Man 0.5 mL IM Left Deltoid 0.5 mL [id number] 05/02/27 14272-015-49 Sistemic Total Dispensed Waste 0.5 mL 0 % VIS Given Date VIS Provided VIS Publication Date 03/04/25 Single Vaccine 21 Eligibility Eligibility Date Funding Source Not [facility] Eligible 03/04/25 Private Assessment & Plan Assessment & Plan Orders: Orders TDaP Immunization Today Z23 - Encounter for immunization Coding
--- OUTSIDE RECORDS SUMMARY | 2025-03-04 10:24 | XMS_ITS | Clinical Summary ---
Author Organization [facility] Address [address] [place] [phone] Phone Care Team Providers Care Plasterer Spray Gun Name Role Phone Patsy Bolton MD Primary Care Provid er Allergies No known active allergies Medications No known medications Social History Tobacco Use Types Packs/Day Years Used Date Smoking Tobacco: Never Smokeless Tobacco: Never Education Answer Date Recorded Are you interested in more education? Not on thuy e 10/08/2022 Are you concerned about learning? Not on file 10/08/2022 No 10/08/2022 No 10/08/2022 Digital Access Answer Date Recorded No 11/06/2022 No 11/06/2022 Reliable internet access at home? Not on file 11/06/2022 Device with a working camera? Not on file Comments Unknown Sex and Gender Information Value Date Recorded Sex Assigned at Not on file Legal Sex Female 10:30 PM EDT Gender Identity Not on file Sexual Orientation Not on file Last Filed Vital Signs Vital Sign Reading Time Taken Comments Blood Pressure 106/62 09/11/2018 11:21 AM EDT Pulse 76 09/11/2018 11:21 AM EDT Temperature 36.7 C (98.1 F) 09/11/2018 11:21 AM EDT Respiratory Rate - - Oxygen Saturation 99% 09/11/2018 11:21 AM EDT Inhaled Oxygen Concentration - - Weight 55.3 kg (122 lb) 09/11/2018 11:21 AM EDT Height 154.9 cm (5' 1 ) 09/11/2018 11:21 AM EDT Body Mass Index 23.05 09/11/2018 11:21 AM EDT Plan of Treatment Health Maintenance Due Date Last Done Comments Adult Td,Tdap Booster 1978 LIPID PANEL 1978 DEPRESSION SCREENING 1990 HEPATITIS C SCREENING 1996 HIV ONE-TIME SCREENING (18-6 5 YEARS) 1996 PAP SMEAR 1999 MAMMOGRAM 2018 COLOGUARD 2023 COLONOSCOPY 2023 COLORECTAL CANCER SCREENING 2023 FIT TEST 2023 FOBT 2023 SIGMOIDOSCOPY 2023 VIRTUAL COLONOSCOPY 2023 INFLUENZA VACCINE (#1) 2025 COVID-19 VACCINE (2 - 2024-2 6 season) 2025 10/06/2020 SMOKING STATUS SCREENING (On ce After 26 Yrs) Completed 09/11/2018 HEPATITIS A VACCINES Aged Out No long er eligible based on patient's age to complete this topic HIB VACCINES Aged Out No longer eligi ble based on patient's age to complete this topic MENINGOCOCCAL VACCINES (ACWY) Aged Out No longer eligible based on patient's age to complete this topic MENINGOCOCCAL VACCINES (B) Aged Out N o longer eligible based on patient's age to complete this topic PNEUMOCOCCAL VACCINES (0-49 years) Aged Out No longer eligible based on patient's age to complete this topic Medical Devices Not on file Insurance [place] [address] ACO ACO ACO ACO ACO [place] [address] [place] [address] ACO Care Teams Plasterer Spray Gun Relationship Specialty Start Date End Date Patsy Bolton MD [address] [place] [id number] PCP - General Internal Medicine 09/07/18 Additional Source Comments The information contained in this document represents components of the legal health record. It is not the complete legal health record.[facility]
== END 2025-03-04 09:13 | disposition home or self-care (01) ==
LOC: HO.HMCH 08:56
PROVIDERS: PCP Internal Medicine; Visit Provider Internal Medicine
DX: Z23 Encounter for immunization (principal)

== ENCOUNTER → 2025-03-04 08:55 | Outpatient (BNVA) | payer OTHER, SELFPAY | PROVIDERS: PCP Internal Medicine; Visit Provider Internal Medicine | DX: Z23 Encounter for immunization (principal) | CPT/HCPCS: 90471; 90715 ==

== ENCOUNTER 2025-04-22 13:51 | Outpatient (REF) | payer OTHER, SELFPAY ==
--- NOTE | ~2025-04-22 | MM_ITS ---
EXAMINATION: MM SCREENING DIGITAL BREAST TOMOSYNTHESIS, BILATERAL CLINICAL INFORMATION: Screening. Asymptomatic. COMPARISON: Comparison made to multiple prior, most recent April 16, 2024, and most remote December 04, 2018. TECHNIQUE: Digital breast tomosynthesis is performed in mediolateral oblique and craniocaudal views along with computer-aided detection (CAD). Synthesized 2D images are generated from the tomosynthesis. FINDINGS: BREAST COMPOSITION: The breasts are extremely dense, which lowers the sensitivity of mammography. BILATERAL BREASTS: Interval change in size of bilateral oval/round masses is typical of waxing and waning pattern of fibrocystic changes in this patient with sonographically proven cysts. No significant masses, suspicious calcifications or other abnormalities are seen in either breast. MM/MM tomosynthesis screening BI IMPRESSION: BILATERAL BREASTS: Benign, no mammographic evidence of malignancy. Normal interval follow-up is recommended in 12 months. ASSESSMENT: BI-RADS: Category 2: Benign RECOMMENDATION: Routine annual mammography screening. FOLLOW-UP: 1 year F/U This examination should not preclude the clinical evaluation of a suspicious palpable abnormality. This patient's information was entered into a reminder system with a target due date for their next mammogram. Electronically signed by: Steph Luu MD 04/23/2025 09:29 PM [facility]
--- OUTSIDE RECORDS SUMMARY | 2025-04-22 16:07 | XMS_ITS | Clinical Summary ---
Author Organization [facility] Address [address] [place] [phone] Phone Care Team Providers Care Criminal Judge Name Role Phone Patsy Bolton MD Primary [...] topic Medical Devices Not on file [place] [address] [address] [place] [address] ACO ACO ACO ACO [place] [address] [place] [address] ACO Care Teams Criminal Judge Relationship Specialty Start Date End Date Patsy Bolton MD [address] [place] [id number] PCP - General Internal Medicine 09/07/18 Additional Source Comments The information contained in this document represents components of the legal health record. It is not the complete legal health record.[facility]
== END 2025-04-22 13:52 | disposition home or self-care (01) ==
LOC: HO.MAMMO 13:51
PROVIDERS: PCP Internal Medicine; Visit Provider Internal Medicine
DX: Z12.31 Encounter for screening mammogram for malignant neoplasm of breast (principal)
CPT/HCPCS: 77063; 77067

== ENCOUNTER → 2025-04-22 14:00 | Outpatient (BNV) | payer OTHER, SELFPAY | PROVIDERS: PCP Internal Medicine; Visit Provider Radiology Body Imaging | DX: Z12.31 Encounter for screening mammogram for malignant neoplasm of breast (principal) | CPT/HCPCS: 77063; 77067 ==

== ENCOUNTER 2025-05-06 09:04 | Outpatient (AMB) | payer OTHER, SELFPAY ==
[2025-05-06 09:24] VITALS: BP 90/60; PULSE 74; RESP 18; O2SAT 99; BMI 21.8
--- NOTE | 2025-05-06 09:24 | MHC.PC.OV ---
Vital Signs 05/06/25 09:24 Height 5 ft 1 in Weight 115 lb 8 oz BMI 21.8 BP 90/60 Blood Pressure Location Lt brachial Position Sitting Respiration 18 Pulse 74 Pulse Source Pulse Oximeter Temp Source Temporal Artery Scan Pulse Oximetry (%) 99 Oxygen Delivery Method Room Air Intake Visit Reasons: Annual Exam Change Management Administrator Required: No Accompanied by: Self / Same As Patient Allergies No Known Allergies Allergy (Verified 05/06/25 09:34) Medication List - Last Reconciled 05/06/25 by Patsy Cooper MD cholecalciferol (vitamin D3) 50 mcg PO DAILY 90 days cyanocobalamin (vitamin B-12) (Vitamin B-12) 1,000 mcg PO DAILY ferrous sulfate 325 mg PO DAILY hydrocortisone-acetic acid 1-2 % 4 drps otic (ear) left QID levonorgestrel (Mirena) 21 mcg intrauterine DAILY loratadine (Allergy Relief (loratadine)) 10 mg PO DAILY 90 days Tobacco use date assessed: 05/06/25 Dental Screening Dental Screen Date: 05/06/25 Did you have a dental visit in the last 12 months?: Yes Did you have a dental problem in the last 6 months where you did not have access to dental care?: No Was dental information given to patient?: Patient has dentist HPI HPI Comments History of Present Illness Details The patient is a 44-year-old individual presenting for an annual physical examination. The patient reports feeling tired, which the patient attributes to multiple factors including household stress, change in weather, and working from home. The patient also reports experiencing symptoms of perimenopause, such as increased irritation and impatience, for the past couple of weeks, coinciding with stress related to foster care. 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 Current medications include vitamin D, vitamin B12, ferrous sulfate once a day, and loratadine as needed for allergies. The patient has a Mirena IUD. Past surgical history includes a tubal ligation and two sections. Family history is significant for the patient's father who from kidney failure and prostate cancer, and mother who from breast and cervical cancer. Health screenings were reviewed and noted to be up to date, including a recent mammogram, a Pap smear from last year, and a Cologuard test from 2024. The next Cologuard is due in 2026. The patient declined the flu shot today. Continue current supplements including vitamin D, vitamin B12, and ferrous sulfate. [facility] Medical History (Updated 05/06/25 @ 10:13 by Patsy Cooper MD) FH: breast cancer in first degree relative Neutropenia Fibroids Raynaud disease Skin lesion of scalp HSV-1 infection Seasonal allergies Surgical History Hx of tubal ligation History of 2 sections Family History Father Prostate cancer Kidney failure Mother Cervical cancer Breast cancer Maternal Grandmother Breast cancer Social History Housing: House Alcohol intake: current Alcohol intake frequency: holidays/special occasions only Alcohol type: beer, wine and hard liquor Patient Tobacco Use Status: Never used Tobacco e-Cigarette/Vaping Use: Never Used Second Hand Smoke Exposure: No service: No Current occupational status: employed Current occupational exposures/hazards: No Gender identity: Female Cognitive needs: No Hearing needs: No Vision needs: Yes Female Reproductive History Menstrual Age of Menarche: 11 Questionnaire PHQ-9 Over the last 2 weeks, how often have you been bothered by any of the following problems? 1. Little interest or pleasure in doing things: not at all 2. Feeling down, depressed, or hopeless: not at all 3. Trouble falling or staying asleep, or sleeping too much: several days 4. Feeling tired or having little energy: several days 5. Poor appetite or overeating: not at all 6. Feeling bad about yourself - or that you are a failure or have let yourself or your family down: not at all 7. Trouble concentrating on things, such as reading the newspaper or watching television: several days 8. Moving or speaking so slowly that other people could have noticed. Or the opposite - being so fidgety or restless that you have been moving around a lot more than usual: not at all 9. Thoughts that you would be better off or of hurting yourself in some way: not at all Total score: 3 Depression Screening Interpretation: Positive Depression Screening Follow-up: Existing condition and Follow-up Visit Requested Depression Screening Done: Yes 50744 - PHQ-9 Billing: Yes Source: Developed by Drs. Axel Larose, Anthony Watson and colleagues, with an educational cesario from [employer]. Thrive Questionnaire Date Thrive assessed: 05/06/25 I am a: Patient What is your living situation today?: I have a steady place to live Within the past 12 months, did the food you bought not last and you didn't have the money to get more?: Never true Within the past 12 months, did you worry whether your food would run out before you got money to buy more?: Never true Do you have trouble paying for medicines?: No Do you have trouble getting transportation to medical appointments?: No Do you have trouble paying your heating and electricity bill?: No Do you have trouble taking care of your child, family member or friend?: No Do you have trouble with day-to-day activities such as bathing, preparing meals, shopping, managing finances, etc.?: No Are you currently unemployed and looking for a job?: No Are you interested in more education?: No Please select the resources that you would like help with: None Currently or been in a relationship where the following occur: No concerns reported THRIVE Score: 0 AUDIT C Alcohol Use Questionnaire (AUDIT-C) 1. How often do you have a drink containing alcohol?: Monthly or less Total Score: 1 Score Reviewed/Action Taken: No LUIS-7 AMB Questionnaire LUIS-7 Date LUIS - 7 assessed: 05/06/25 Feeling nervous, anxious, or on edge: 1 = Several days Not being able to stop or control worryin = Several days Worrying too much about different things: 1 = Several days Trouble relaxin = Several days Being so restless that it is hard to sit still: 0 = Not at all Becoming easily annoyed or irritable: 1 = Several days Feeling afraid as if something awful might happen: 1 = Several days Total LUIS-7 score (0-4 normal; 5-9 mild; 10-14 moderate; 15-21 severe): 6 Source: Developed by Drs. Axel Larose, Anthony Watson and colleagues, with an educational cesario from [employer]. LUIS-7 Assessment Billing LUIS-7 Assessment Tool: LUIS-7 Assessment 85106 Review of Systems Const All systems reviewed & are unremarkable except as noted in HPI and below Card Denies chest pain at rest, Denies chest pain with activity, Denies edema, Denies irregular heart rhythm, Denies claudication, Denies dyspnea, Denies dyspnea on exertion, Denies orthopnea, Denies paroxysmal nocturnal dyspnea and Denies slow heart rate Resp Denies cough, Denies dyspnea and Denies dyspnea on exertion GI Denies abdominal pain, Denies change in bowel habits, Denies excessive flatus, Denies nausea and Denies vomiting Physical exam (Primary Care) Vital Signs: Last Vital Signs Pulse 74 05/06/25 09:24 Resp 18 05/06/25 09:24 BP 90/60 05/06/25 09:24 Pulse Ox 99 05/06/25 09:24 Oxygen Delivery Method Room Air 05/06/25 09:24 BMI result Body Mass Index 21.8 Tobacco/Smoking Status: Tobacco use Status Tobacco use date assessed 05/06/25 05/06/25 09:26 Patient Tobacco Use Status Never used Tobacco 05/06/25 09:26 e-Cigarette/Vaping Use Never Used 05/06/25 09:26 PHQ-9: PHQ-9 Score PHQ-9: Total score 3 05/06/25 09:30 Depression Screening Interpretation: Positive Depression Screening Follow-up: Existing condition and Follow-up Visit Requested Thrive Assessment: Date of Thrive Assessment Date Thrive assessed 05/06/25 05/06/25 09:26 Currently or been in a relationship where the following occur: No concerns reported [facility] Head: Yes normal to inspection, Yes normocephalic and Yes atraumatic Ears: external ears normal Eyes General: appearance normal, both eyes and all related structures Eyelids: Yes eyelids normal Conjunctivae: conjunctivae normal Neck Neck: Yes normal visual inspection and Yes supple Resp Effort & Inspection: normal respiratory effort Auscultation: clear to auscultation bilaterally Cardio Jugular venous distension: no JVD Rate: regular rate Rhythm: regular rhythm Heart sounds: S1 normal heart sound present and S2 normal heart sound present GI Inspection: Yes normal to inspection Palpation (GI): Soft to palpation and nontender Auscultation: normal bowel sounds Skin General skin exam: no rashes or lesions noted Neuro General: no focal motor deficits Extrem General: Yes full ROM Psych Appearance: grossly normal Coding Level of Care Code Est Pt Prev Care 40-64y(26487) Diagnoses Physical exam Z00.00 Additional Codes PHQ-9 - 65881 - PHQ-9 Billing: Yes ([id number]) LUIS-7 Assessment Billing - LUIS-7 Assessment Tool: LUIS-7 Assessment 24942 ([id number]) Time Spent (min) 30 Assessment & Plan Assessment & Plan (1) Physical exam: Code(s): Z00.00 - Encounter for general adult medical examination without abnormal findings Category: Medical Plan Repeat in a year. The Cologuard in 2026. Continue yearly mammograms. Pap smear no earlier than 3 years. Orders: Orders IRON PROFILE Today D64.9 - Anemia, unspecified Comprehensive [place]. Panel Fast Today Z00.00 - Encounter for general adult medical examination without abnormal findings Vitamin D 25-OH Total Today E55.9 - Vitamin D deficiency, unspecified Vitamin B12 and Folate Today E53.8 - Deficiency of other specified B group vitamins Complete Blood Count Auto Diff Today D64.9 - Anemia, unspecified Lipid Panel Today E78.5 - Hyperlipidemia, unspecified
== END 2025-05-06 10:10 | disposition home or self-care (01) ==
LOC: HO.HMCH 09:05
PROVIDERS: PCP Internal Medicine; Visit Provider Internal Medicine
DX: Z00.00 Encounter for general adult medical examination without abnormal findings (principal)

== ENCOUNTER → 2025-05-06 09:04 | Outpatient (BNVA) | payer OTHER, SELFPAY | PROVIDERS: PCP Internal Medicine; Visit Provider Internal Medicine | DX: Z00.00 Encounter for general adult medical examination without abnormal findings (principal); D64.9 Anemia, unspecified; E55.9 Vitamin D deficiency, unspecified; E53.8 Deficiency of other specified B group vitamins; E78.5 Hyperlipidemia, unspecified; Z13.31 Encounter for screening for depression; Z13.39 Encounter for screening examination for other mental health and behavioral disorders; Z63.79 Other stressful life events affecting family and household | CPT/HCPCS: 96127; 99396 ==

== ENCOUNTER 2025-05-20 09:25 | Outpatient (REF) | payer OTHER, SELFPAY ==
[2025-05-20 09:39] LABS: MANUAL DIFF FLAG NO
[2025-05-20 10:04] LABS: Hematocrit 35.9 % (37.0-47.0); Hemoglobin 12.7 g/dl (12.0-16.0); Imm Gran Abs Auto 0.01 X10*3/uL (0.00-0.03); Imm Gran Pct Auto 0.3 % (0.0-0.4); Lymphocytes Absolute Auto 0.8 X10*3/uL (1.2-4.9); Mean Corpuscular HGB Conc 35.4 g/dl (31.0-35.0); Mean Corpuscular Hemoglobin 31.6 pg (27.0-33.0); Mean Corpuscular Volume 89.3 fL (80.0-98.0); NRBC Abs Auto 0.000 X10*3/uL (0.0-0.012); NRBC Pct Auto 0.0 /100WBC (0.0-0.2); Platelet Count 176 X10*3/uL (160-400); Red Blood Count 4.02 X10*6/uL (4.20-5.50); White Blood Count 3.3 X10*3/uL (4.8-10.8)
[2025-05-20 10:30] LABS: Alanine Aminotransferase 23 U/L (0-31); Albumin Level 4.9 g/dL (3.5-5.0); Alkaline Phosphatase 60 U/L (39-117); Anion Gap 12 (12-20); Aspartate Amino Transferase 27 U/L (5-31); Blood Urea Nitrogen 15 mg/dL (9-16); Calcium 9.1 mg/dL (8.4-10.2); Carbon Dioxide 25 mmol/L (22-29); Chloride 107 mmol/L (96-108); Cholesterol 209 mg/dL (<200); Estimated Glomerular Filt Rate > 60; HDL Cholesterol 49 mg/dL (>40); Iron 103 mcg/dL (30-160); Percent Iron Saturation 38 % (15-50); Potassium 3.6 mmol/L (3.3-5.1); Sodium 140 mmol/L (135-145); Total Iron Binding Capacity 268 mcg/dL (228-428); Total Protein 7.8 g/dL (6.5-8.0); Triglycerides 82 mg/dL (<150); Unsaturated Iron Binding 165 ug/dL
[2025-05-20 11:01] LABS: Folate 8.2 ng/mL (> or = 4.0); Vitamin B12 1518 pg/mL (200-900)
== END 2025-05-20 09:26 | disposition home or self-care (01) ==
LOC: HO.LAB 09:25
PROVIDERS: PCP Internal Medicine; Visit Provider Internal Medicine
DX: Z00.00 Encounter for general adult medical examination without abnormal findings (principal); E53.8 Deficiency of other specified B group vitamins; D64.9 Anemia, unspecified; E55.9 Vitamin D deficiency, unspecified; E78.5 Hyperlipidemia, unspecified
CPT/HCPCS: 36415; 80053; 80061; 82306; 82607; 82746; 83540; 85025